=== PATIENT | female | born 1965 | race Caucasian/White ===

== ENCOUNTER → 2016-11-27 | Outpatient (CLI) | payer OTHER ==
--- NOTE | 2016-11-28 09:11 | MM ---
Reason for exam: screening (asymptomatic). Last mammogram was performed 4 years and 1 month ago. History: Patient is postmenopausal. Took hormonal contraceptives for 2 years beginning at age 20. Physical Findings: A clinical breast exam by your physician is recommended on an annual basis and results should be correlated with mammographic findings. MG Screening Mammo w CAD Bilateral CC and MLO view(s) were taken. Prior study comparison: October 15, 2012, bilateral digital screening mammo w/CAD. December 02, 2008, bilateral digital screening mammogram. The breast tissue is extremely dense which could obscure a lesion on mammography. No significant changes when compared with prior studies. ASSESSMENT: Benign, BI-RAD 2 RECOMMENDATION: Routine screening mammogram of both breasts in 1 year.
== END | disposition home or self-care (01) ==
LOC: RADMAMWWP 13:14
PROVIDERS: ATTEND Obstetrics & Gynecology
DX: Z12.31 Encounter for screening mammogram for malignant neoplasm of breast (principal)

== ENCOUNTER → 2016-11-27 | Outpatient (CLI) | payer OTHER ==
[2016-11-27 08:59] LABS: ALT 31 U/L (9-52); AST 18 U/L (14-36); Alkaline Phosphatase 62 U/L (38-126); Anion Gap 8 mmol/L; Blood Urea Nitrogen 14 mg/dL (7-17); Calcium 8.9 mg/dL (8.4-10.2); Carbon Dioxide 27 mmol/L (22-30); Chloride 107 mmol/L (98-107); Cholesterol 143 mg/dL (<200); Glucose 90 mg/dL (74-99); HDL Cholesterol 50 mg/dL (40-60); Non-African American GFR(MDRD) >60 (>60 ml/min/1.73 sqM); Potassium 4.4 mmol/L (3.5-5.1); Sodium 142 mmol/L (137-145); Total Bilirubin 0.1 mg/dL (0.2-1.3); Total Protein 6.8 g/dL (6.3-8.2)
[2016-11-27 09:09] LABS: Hemoglobin A1C 6.1 % (4.2-6.1)
[2016-11-27 16:26] LABS: Urine Creatinine 198.9 mg/dL
== END | disposition home or self-care (01) ==
LOC: LABWHC1 08:12
PROVIDERS: ATTEND Internal Medicine Endocrinology, Diabetes & Metabolism
DX: E11.9 Type 2 diabetes mellitus without complications (principal); Z98.890 Other specified postprocedural states
CPT/HCPCS: 36415; 80053; 80061; 82043; 82306; 82570; 83036

== ENCOUNTER → 2017-06-14 | Outpatient (CLI) | payer OTHER ==
--- NOTE | 2017-06-15 06:59 | XR ---
EXAMINATION TYPE: XR KUB DATE OF EXAM: 06/14/2017 4:50 PM CLINICAL HISTORY: Constipation with pain and cramping TECHNIQUE: Two supine KUB images of the abdomen are obtained. COMPARISON: CT abdomen and pelvis October 21, 2015. FINDINGS: Scattered gas is seen in non-distended small bowel loops. Gas and fecal material is seen in non-distended colon and rectum. Surgical sutures epigastric region from gastric sleeve surgery are r edemonstrated. Visualized lung bases are clear. No suspicious calcifications are seen visualized osse ous structures are intact. IMPRESSION: Overall nonobstructive bowel gas pattern. No significant colonic fecal stasis.
== END ==
LOC: RADXRMAIN 16:32
PROVIDERS: ATTEND Family Medicine
DX: K59.09 Other constipation (principal)
CPT/HCPCS: 74018

== ENCOUNTER → 2017-08-24 | Outpatient (CLI) | payer OTHER ==
[2017-08-24 13:38] LABS: T4, Free (Free Thyroxine) 0.75 ng/dL (0.78-2.19)
== END | disposition home or self-care (01) ==
LOC: LABWHC1 12:16
PROVIDERS: ATTEND Obstetrics & Gynecology
DX: E03.9 Hypothyroidism, unspecified (principal)
CPT/HCPCS: 36415; 84439; 84443

== ENCOUNTER → 2017-11-10 | Outpatient (CLI) | payer OTHER ==
[2017-11-10 09:41] LABS: Anisocytosis Slight; Basophils # (A) 0.1 k/uL (0-0.2); Basophils % (A) 1 %; Eosinophils # (A) 0.1 k/uL (0-0.7); Eosinophils % (A) 3 %; HCT 31.7 % (34.0-46.0); HGB 9.5 gm/dL (11.4-16.0); Hypochromasia Marked; Lymphocytes # (A) 1.3 k/uL (1.0-4.8); Lymphocytes % (A) 30 %; MCH 22.3 pg (25.0-35.0); MCV 74.5 fL (80.0-100.0); Mean Platelet Volume 5.8; Microcytosis Moderate; Monocytes # (A) 0.2 k/uL (0-1.0); Monocytes % (A) 6 %; Neutrophils # (A) 2.5 k/uL (1.3-7.7); Neutrophils % (A) 58 %; Platelet Count 392 k/uL (150-450); RBC 4.26 m/uL (3.80-5.40); RDW 17.5 % (11.5-15.5); WBC 4.3 k/uL (3.8-10.6)
[2017-11-10 09:56] LABS: ALT 27 U/L (9-52); AST 22 U/L (14-36); Alkaline Phosphatase 57 U/L (38-126); Anion Gap 6 mmol/L; Blood Urea Nitrogen 20 mg/dL (7-17); Calcium 9.4 mg/dL (8.4-10.2); Carbon Dioxide 27 mmol/L (22-30); Chloride 107 mmol/L (98-107); Cholesterol 177 mg/dL (<200); Glucose 106 mg/dL (74-99); HDL Cholesterol 57 mg/dL (40-60); LDL Cholesterol,Calculated 102 mg/dL (0-99); Lipase 270 U/L (23-300); Sodium 140 mmol/L (137-145); Total Bilirubin 0.3 mg/dL (0.2-1.3); Total Protein 7.3 g/dL (6.3-8.2); Triglycerides 89 mg/dL (<150)
[2017-11-10 11:00] LABS: Erythrocyte Sedimentation Rate 25 mm/hr (0-20)
[2017-11-10 18:44] LABS: Hemoglobin A1C 6.2 % (4.0-6.0)
== END | disposition home or self-care (01) ==
LOC: LABWHC1 08:38
PROVIDERS: ATTEND Family Medicine
DX: Z00.00 Encounter for general adult medical examination without abnormal findings (principal); E11.9 Type 2 diabetes mellitus without complications; K86.89 Other specified diseases of pancreas; R53.83 Other fatigue; R19.04 Left lower quadrant abdominal swelling, mass and lump
CPT/HCPCS: 36415; 80053; 80061; 82043; 82570; 82607; 83036; 83690; 83735; 84443; 85025; 85652

== ENCOUNTER → 2018-05-28 | Outpatient (CLI) | payer OTHER ==
--- NOTE | 2018-05-28 09:29 | US ---
EXAMINATION TYPE: US abdomen complete DATE OF EXAM: 05/28/2018 COMPARISON: US 11/16/2015, CT 10/21/2015 CLINICAL HISTORY: R19.04 PELVIC SWELLING,MASS OR LUMP,R11.0 NAUSEA. EXAM MEASUREMENTS: Liver Length: 15.3 cm Gallbladder Wall: 0.2 cm CBD: 0.3 cm Spleen: 9.8 cm Right Kidney: 9.8 x 4.2 x 4.9 cm Left Kidney: 10.5 x 5.9 x 4.6 cm Pancreas: Obscured by bowel gas Liver: Coarse, heterogeneous echotexture. Portal vein appear enlarged measuring 1.6 cm Gallbladder: wnl Evidence for sonographic Gooden's sign: No CBD: wnl Spleen: wnl Right Kidney: No hydronephrosis or masses seen Left Kidney: No hydronephrosis or masses seen Upper IVC: wnl Abd Aorta: Proximal portion obscured by bowel gas, visualized portions wnl IMPRESSION: 1. Coarsened pattern to the liver suggestive of fatty infiltration, hepatitis or diffuse hepatocellul ar disease correlate clinically.
== END | disposition home or self-care (01) ==
LOC: RADUSWWP 08:15
PROVIDERS: ATTEND Family Medicine
DX: R93.2 Abnormal findings on diagnostic imaging of liver and biliary tract (principal); R74.8 Abnormal levels of other serum enzymes; K86.89 Other specified diseases of pancreas; R19.04 Left lower quadrant abdominal swelling, mass and lump; R11.0 Nausea
CPT/HCPCS: 76700

== ENCOUNTER 2018-06-05 06:55 | Day surgery (SDC) | payer OTHER ==
[2018-06-03 12:50] VITALS: BMI 25.7
[~2018-06-05 06:55] MED LIST: LACTATED RINGERS 1,000 ML IV SCH; LIDOCAINE 1% 20 ML VIAL (10MG/ML) FOR IV START INTRADERMA PRN
[2018-06-05 07:20] VITALS: RESP 16; TEMP 98.3
[2018-06-05 07:20] LABS: Glucose,Whole Blood 127 mg/dL (75-99)
[2018-06-05] MEDS ORDERED: LIDOCAINE 1% INJ 10MG/ML (20 ML MDV) ONE (07:30)
[2018-06-05] MEDS ORDERED: PROPOFOL 10 MG/ML 20 ML VIAL IV ONE (07:30)
--- NOTE | 2018-06-05 07:34 | P.GSHP ---
History of Present Illness H&P Date: 06/05/18 CHIEF COMPLAINT: GERD and colon screen HISTORY OF PRESENT ILLNESS: The patient is a 52-year-old female who presents with gastroesophageal reflux disease and need for colon screen. Upper and lower endoscopy were offered for further evaluation and management. PAST MEDICAL HISTORY: Please see list. PAST SURGICAL HISTORY: Please see list. MEDICATIONS: Please see list. ALLERGIES: Please see list. SOCIAL HISTORY: No illicit drug use FAMILY HISTORY: No reports of Crohn disease or ulcerative colitis. REVIEW OF ORGAN SYSTEMS: CONSTITUTIONAL: No reports of fevers or chills. GI: Denies any blood in stools or constipation. PHYSICAL EXAM: VITAL SIGNS: Stable GENERAL: Well-developed pleasant in no acute distress. HEENT: No scleral icterus. Extraocular movements grossly intact. Moist buccal mucosa. NECK: Supple without lymphadenopathy. CHEST: Unlabored respirations. Equal bilateral excursions. CARDIOVASCULAR: Regular rate and rhythm. Distal 2+ pulses. ABDOMEN: Soft, nondistended. MUSCULOSKELETAL: No clubbing, cyanosis, or edema. ASSESSMENT: 1. Gastroesophageal reflux disease 2. Colon screen. PLAN: 1. Recommend proceeding with an upper and lower endoscopy Past Medical History Past Medical History: Diabetes Mellitus, GERD/Reflux, Renal Disease, Syncope, Thyroid Disorder Additional Past Medical History / Comment(s): TYPE 2 DIABETES CONTROLLED WITH DIET & EXERCISE. HX ANEMIA. HX heart murmur 20 yrs ago, no treatment. Acid reflux resolved. Syncope X1 6 weeks ago. "Undiagnosed kidney problem." Constipation. Hiatal hernia. Hx low thyroid, resolved now. History of Any Multi-Drug Resistant Organisms: None Reported Past Surgical History: Bariatric Surgery, Section, Hysterectomy, Tubal Ligation Additional Past Surgical History / Comment(s): LAP BAND IN 2007, LAB BAND REMOVED IN 2013, GASTRIC SLEEVE 2013. X 2. Past Anesthesia/Blood Transfusion Reactions: No Reported Reaction, Family History of Problems w/ Anesthesia Additional Past Anesthesia/Blood Transfusion Reaction / Comment(s): MOTHER & SISTER HAD DIFFICULTY IN WAKING UP. Past Psychological History: No Psychological Hx Reported Smoking Status: Current some day smoker Past Alcohol Use History: None Reported Additional Past Alcohol Use History / Comment(s): STARTED SMOKING AGE 19(1984) OFF & ON - NOW SOMEDAY SMOKER 1/2 PACK PER WEEK. Past Drug Use History: None Reported - Past Family History Mother History Unknown: Yes Medications and Allergies Home Medications Medication Instructions Recorded Confirmed Type Cetirizine HCl [Zyrtec] 10 mg PO DAILY 12/02/14 06/05/18 History Lisinopril [Zestril] 5 mg PO QAM 06/03/18 06/05/18 History Multivitamins, Thera [Multivitamin 1 tab PO DAILY 06/03/18 06/05/18 History (formulary)] Vitamin D (Unknown Dose) 2 tab PO DAILY 06/03/18 06/05/18 History Allergies Allergy/AdvReac Type Severity Reaction Status Date / Time clarithromycin [From Biaxin] Allergy Dyspnea, Verified 06/03/18 12:52 Hives sulfamethoxazole Allergy Dyspnea Verified 06/03/18 12:52 [From Bactrim] trimethoprim [From Bactrim] Allergy Dyspnea Verified 06/03/18 12:52 venom-honey bee Allergy Anaphylaxis Verified 06/03/18 12:52 [bee venom (honey bee)] Surgical - Exam Vital Signs Temp Pulse Resp BP Pulse Ox 98.3 F 79 16 115/62 98 06/05/18 07:12 06/05/18 07:12 06/05/18 07:12 06/05/18 07:12 06/05/18 07:12 Results - Labs Abnormal Lab Results - Last 24 Hours (Table) 06/05/18 Range/Units 07:16 POC Glucose (mg/dL) 127 H (75-99) mg/dL
--- NOTE | 2018-06-05 07:43 | P.GSHP ---
History of Present Illness H&P Date: 06/05/18 PREOPERATIVE DIAGNOSIS: Dysphagia. Epigastric abdominal pain POSTOPERATIVE DIAGNOSIS: Dysphagia. Epigastric abdominal pain Gastrojejunal stricture without chronic ulcer without perforation OPERATION: Esophagogastrojejunoscopy with balloon dilatation from 18 to 20 mm. SURGEON: Lissy Elizabeth MD ANESTHESIA: MAC. INDICATIONS: The patient is a 52-year-old female who presents with a history of dysphagia, gastric bypass. Benefits and risks of the procedure were described. Informed consent was obtained. DESCRIPTION: The patient was brought into the endoscopy suite and laid in the left lateral decubitus position. After a timeout was confirmed, the procedure was initiated. An Olympus gastroscope was passed along the posterior oropharynx down to the distal esophagus where the squamocolumnar junction was unremarkable. The gastric pouch was entered. A gastrojejunal stricture of 18 mm was found as the adult gastroscope was 9.5 mm in size. A [employer] balloon dilator was placed through the scope. Final insufflation up to 20 mm was performed with a total of 1 minutes. The scope was advanced up to 60 cm from the incisors into the Iraj limb. The mucosa of the gastrojejunal anastomosis was intact. No chronic gastrojejunal marginal ulcer was encountered. No full-thickness injury was encountered. The GI tract was desufflated. The patient tolerated the procedure well. FINDINGS: Squamocolumnar junction unremarkable at 33 cm. Stricture of approximately 182 mm encountered. Long blind jejunal limb, 7 cm Diaphragmatic hiatal hernia 3 cm NO gastrojejunal ulceration encountered. Successful balloon dilatation to 20 mm. Gastric pouch 3 cm. RECOMMENDATIONS: Upper endoscopy as needed Past Medical History Past Medical History: Diabetes Mellitus, GERD/Reflux, Renal Disease, Syncope, Thyroid Disorder Additional Past Medical History / Comment(s): TYPE 2 DIABETES CONTROLLED WITH DIET & EXERCISE. HX ANEMIA. HX heart murmur 20 yrs ago, no treatment. Acid reflux resolved. Syncope X1 6 weeks ago. "Undiagnosed kidney problem." Constipation. Hiatal hernia. Hx low thyroid, resolved now. History of Any Multi-Drug Resistant Organisms: None Reported Past Surgical History: Bariatric Surgery, Section, Hysterectomy, Tubal Ligation Additional Past Surgical History / Comment(s): LAP BAND IN 2007, LAB BAND REMOVED IN 2013, GASTRIC SLEEVE 2013. X 2. Past Anesthesia/Blood Transfusion Reactions: No Reported Reaction, Family History of Problems w/ Anesthesia Additional Past Anesthesia/Blood Transfusion Reaction / Comment(s): MOTHER & SISTER HAD DIFFICULTY IN WAKING UP. Past Psychological History: No Psychological Hx Reported Smoking Status: Current some day smoker Past Alcohol Use History: None Reported Additional Past Alcohol Use History / Comment(s): STARTED SMOKING AGE 19(1982) OFF & ON - NOW SOMEDAY SMOKER 1/2 PACK PER WEEK. Past Drug Use History: None Reported - Past Family History Mother History Unknown: Yes Medications and Allergies Home Medications Medication Instructions Recorded Confirmed Type Cetirizine HCl [Zyrtec] 10 mg PO DAILY 12/02/14 06/05/18 History Lisinopril [Zestril] 5 mg PO QAM 06/03/18 06/05/18 History Multivitamins, Thera [Multivitamin 1 tab PO DAILY 06/03/18 06/05/18 History (formulary)] Vitamin D (Unknown Dose) 2 tab PO DAILY 06/03/18 06/05/18 History Allergies Allergy/AdvReac Type Severity Reaction Status Date / Time clarithromycin [From Biaxin] Allergy Dyspnea, Verified 06/03/18 12:52 Hives sulfamethoxazole Allergy Dyspnea Verified 06/03/18 12:52 [From Bactrim] trimethoprim [From Bactrim] Allergy Dyspnea Verified 06/03/18 12:52 venom-honey bee Allergy Anaphylaxis Verified 06/03/18 12:52 [bee venom (honey bee)] Surgical - Exam Vital Signs Temp Pulse Resp BP Pulse Ox 98.3 F 79 16 115/62 98 06/05/18 07:12 06/05/18 07:12 06/05/18 07:12 06/05/18 07:12 06/05/18 07:12 Results - Labs Abnormal Lab Results - Last 24 Hours (Table) 06/05/18 Range/Units 07:16 POC Glucose (mg/dL) 127 H (75-99) mg/dL
--- NOTE | 2018-06-05 07:59 | P.PCN ---
Date of Procedure: 06/05/18 Description of Procedure: PREOPERATIVE DIAGNOSIS: Colonoscopy screening, first POSTOPERATIVE DIAGNOSIS: Colonoscopy screening, first OPERATION: Colonoscopy to the ileocecal valve and appendiceal orifice. SURGEON: Lissy Elizabeth MD. ANESTHESIA: MAC. INDICATIONS: The patient is a 52-year-old female who presents for her first colonoscopy screening. Benefits and risks were described and informed consent was obtained. DESCRIPTION OF PROCEDURE: The patient had undergone Gatorade, MiraLAX and Dulcolax prep. She had been brought into the operating room and laid in the left lateral decubitus position. After adequate intravenous sedation, the rectum was examined with 2% lidocaine jelly. No external hemorrhoids were encountered. The rectal tone was within normal limits. No lesions were palpated in the rectal vault. An Olympus colonoscope was advanced until the ileocecal valve and appendiceal orifice were clearly viewed. The prep was excellent with clear visualization of the mucosal folds. The scope was removed with visualization of each mucosal fold. No scattered diverticulosis was encountered. No colonic polyps were found. No evidence of focal colitis was found. Retroflexion of the scope demonstrated no internal hemorrhoids without active bleeding or inflammation. The colon was de sufflated. The patient had tolerated the procedure well. Withdrawal time was over 6 minutes. FINDINGS: Aronchik preparation quality scale 1 (1-5) No internal hemorrhoids No sigmoid diverticulosis No external prolapsed hemorrhoids. No arteriovenous malformations. No adenomatous polyps. No focal colitis. RECOMMENDATIONS: Lower endoscopy in 10 years, 2028 Plan - Discharge Summary Discharge Rx Participant: No New Discharge Prescriptions: No Action Cetirizine HCl [Zyrtec] 10 mg PO DAILY Multivitamins, Thera [Multivitamin (formulary)] 1 tab PO DAILY Lisinopril [Zestril] 5 mg PO QAM Vitamin D (Unknown Dose) 2 tab PO DAILY Discharge Medication List Cetirizine HCl [Zyrtec] 10 mg PO DAILY 12/02/14 [History] Lisinopril [Zestril] 5 mg PO QAM 06/03/18 [History] Multivitamins, Thera [Multivitamin (formulary)] 1 tab PO DAILY 06/03/18 [History] Vitamin D (Unknown Dose) 2 tab PO DAILY 06/03/18 [History] Follow up Appointment(s)/Referral(s): Lissy Elizabeth MD [STAFF PHYSICIAN] - 07/02/18 Patient Instructions/Handouts: *[facility] - (Anesthesia) Endoscopy Discharge Instructions Activity/Diet/Wound Care/Special Instructions: Repeat colonoscopy in 10 years, 2028 Discharge Disposition: HOME SELF-CARE
[2018-06-05 08:21] VITALS: BP 99/66; PULSE 71
== END 2018-06-05 08:30 | disposition home or self-care (01) ==
LOC: ORWHC2ENDO 06:55
PROVIDERS: ATTEND Surgery Plastic and Reconstructive Surgery
DX: Z12.11 Encounter for screening for malignant neoplasm of colon (principal); K31.89 Other diseases of stomach and duodenum; K21.9 Gastro-esophageal reflux disease without esophagitis; F17.210 Nicotine dependence, cigarettes, uncomplicated; E11.9 Type 2 diabetes mellitus without complications; E07.9 Disorder of thyroid, unspecified; R55 Syncope and collapse; K44.9 Diaphragmatic hernia without obstruction or gangrene; Z91.030 Bee allergy status; Z91.09 Other allergy status, other than to drugs and biological substances; Z88.1 Allergy status to other antibiotic agents; Z88.2 Allergy status to sulfonamides; Z98.84 Bariatric surgery status
CPT/HCPCS: 43245; J2001; J2704; C1726; G0121; 45378

== ENCOUNTER → 2018-07-17 | Outpatient (CLI) | payer OTHER ==
[2018-07-17 15:31] VITALS: BP 135/85; PULSE 90; TEMP 98.1; BMI 27.9
--- NOTE | 2018-07-17 15:58 | P.PN ---
Subjective Progress Note Date: 07/17/18 HPI: Highest of 263 pounds and kept for 11 years. She has severe irritation of the skin and belly button. She is taking the Nystatin powder. Has severe back pain from her skin. She has troubles with grooming as she cannot zip her clothes and increase hot red ulcers, painful ulcers. She has been treated by her CATHODIC PROTECTION TECHNICIAN provider for severe skin infections with worsened symptoms in the summer. ABDOMEN: Has 15 pounds with active panniculitis. ASSESSMENT: 1. Panniculitis 2. Hypothryoidism PLAN: 1. Recommend panniculectomy 2. Start Synthroid low dose of 25 mcg Objective - Vital Signs Vital signs: Vital Signs Temp 98.1 F 07/17/18 15:16 Pulse 90 07/17/18 15:16 Resp BP 135/85 07/17/18 15:16 Pulse Ox Intake & Output 07/16/18 07/17/18 07/17/18 18:59 06:59 18:59 Weight 68.81 kg
== END ==
LOC: BARWHC3 15:03
PROVIDERS: ATTEND Surgery Plastic and Reconstructive Surgery
DX: M79.3 Panniculitis, unspecified (principal); E03.9 Hypothyroidism, unspecified
CPT/HCPCS: 99201

== ENCOUNTER → 2018-07-23 | Outpatient (CLI) | payer OTHER ==
[2018-07-23 17:53] LABS: Anisocytosis Moderate; HCT 33.4 % (34.0-46.0); HGB 10.2 gm/dL (11.4-16.0); Hypochromasia Marked; MCH 24.4 pg (25.0-35.0); MCHC 30.4 g/dL (31.0-37.0); MCV 80.2 fL (80.0-100.0); Mean Platelet Volume 7.2; Microcytosis Slight; Platelet Count 317 k/uL (150-450); RBC 4.17 m/uL (3.80-5.40); RDW 23.1 % (11.5-15.5)
== END | disposition home or self-care (01) ==
LOC: LABPAT 17:06
PROVIDERS: ATTEND Anesthesiology
DX: Z01.812 Encounter for preprocedural laboratory examination (principal); K80.20 Calculus of gallbladder without cholecystitis without obstruction
CPT/HCPCS: 85027

== ENCOUNTER 2018-07-25 10:43 | Day surgery (SDC) | payer OTHER ==
[2018-07-23 10:06] VITALS: BMI 26.5
[~2018-07-25 10:43] MED LIST changes: +DEXAMETHASONE SOD PHOSPHATE 10 MG/ML 1 ML VIAL IV ONE; +HEPARIN SODIUM,PORCINE 5,000 UNIT/ML 1 ML VIAL SQ ONE; +HYDROmorphone 0.5 MG/0.5 ML SYRINGE IVP PRN; +INDOCYANINE GREEN 25 MG VIAL IV STA; +MIDAZOLAM 2 MG/2 ML VIAL IV PRN; +ONDANSETRON 4 MG/2 ML VIAL IVP ONE; +SCOPOLAMINE 1.5MG/72HR PATCH TRANSDERM ONE; +SCOPOLAMINE 1.5MG/72HR PATCH TRANSDERM SCH; +ceFAZolin IN SWFI 2 GM/20 ML SYRINGE IVP ONE
--- NOTE | 2018-07-25 11:33 | P.GSHP ---
History of Present Illness H&P Date: 07/25/18 CHIEF COMPLAINT: Cholecystitis HISTORY OF PRESENT ILLNESS: The patient is a 52-year-old female who presents with history of epigastric including right upper quadrant abdominal pain. She underwent diagnostic studies for her gallbladder. Separately her clinical picture was consistent with cholecystitis. Now she presents for surgical intervention. PAST MEDICAL HISTORY: Please see list PAST SURGICAL HISTORY: Please see list MEDICATIONS: Please see list ALLERGIES: Denies. SOCIAL HISTORY: No illicit drug use or recent tobacco use FAMILY HISTORY: Pertinent for gallbladder disease REVIEW OF ORGAN SYSTEMS: CONSTITUTIONAL: No reports of fevers or chills. HEENT: Denies any troubles with the vision or hearing. PHYSICAL EXAM: VITAL SIGNS: Afebrile vital signs stable GENERAL: Well-developed pleasant in no acute distress. HEENT: No scleral icterus. Extraocular movements grossly intact. Moist buccal mucosa. NECK: Supple without lymphadenopathy. CHEST: Unlabored respirations. Equal bilateral excursions. CARDIOVASCULAR: Regular rate regular rhythm rhythm. Distal 2+ pulses. ABDOMEN: Soft, nondistended. Tender along the epigastrium and right upper quadrant. MUSCULOSKELETAL: No clubbing, cyanosis, or edema. NEURO: Cranial nerves II to XII within normal limits. No focal or lateralizing signs. PSYCH: Alert and oriented to person, place and time. SKIN: Well-perfused good skin turgor. ASSESSMENT: 1. Epigastric and right upper quadrant abdominal pain 2. Chronic cholecystitis 3. Symptomatic gallstones. PLAN: 1. Will need a robotic cholecystectomy possible open. Benefits and risks were described. 2. Heparin for DVT prophylaxis 5000 units. 3. Antibiotic prophylaxis. Past Medical History Past Medical History: Diabetes Mellitus, GERD/Reflux Additional Past Medical History / Comment(s): TYPE 2 DIABETES CONTROLLED WITH DIET & EXERCISE (pt takes Lisinopril not for BP but to protect kidneys from type 2 DM). HAS HX chronic ANEMIA & LOW IRON levels (has received Iron infusions (most recent 07/04/18 and 07/10/18) History of Any Multi-Drug Resistant Organisms: None Reported Past Surgical History: Bariatric Surgery, Section, Hysterectomy, Tubal Ligation Additional Past Surgical History / Comment(s): LAP BAND IN 2007, LAB BAND REMOVED IN 2013., GASTRIC SLEEVE 2013. X 2 (AUGUST 1987 & JUNE 2004)-Tubal Ligation JUNE 2004, HYSTERECTOMY 2014, RnY (gastric bypass 2015), left oopherectomy 2016 Past Anesthesia/Blood Transfusion Reactions: Family History of Problems w/ Anesthesia Additional Past Anesthesia/Blood Transfusion Reaction / Comment(s): MOTHER & SISTER HAD DIFFICULTY IN WAKING UP but she has not had any problems personally Additional Past Alcohol Use History / Comment(s): STARTED SMOKING AGE 19(1984), off and on until 2016. smoked 1/2 pack/day - Past Family History Father Family Medical History: Neurologic Disorder Additional Family Medical History / Comment(s): Patient states her father had "super high iron levels", Sjogrens syndrome, at age 62 from Marcie Gherig's disease Mother History Unknown: Yes Family Medical History: No Reported History Medications and Allergies Home Medications Medication Instructions Recorded Confirmed Type Cetirizine HCl [Zyrtec] 10 mg PO DAILY 12/02/14 07/25/18 History Lisinopril [Zestril] 5 mg PO QAM 06/03/18 07/25/18 History Multivitamins, Thera [Multivitamin 1 tab PO DAILY 06/03/18 07/25/18 History (formulary)] Levothyroxine Sodium [Synthroid] 25 mcg PO DAILY #30 tab 07/17/18 07/25/18 Rx Ergocalciferol (Vitamin D2) 50,000 unit PO PEDROZA 07/23/18 07/25/18 History [Vitamin D2] Ferrous Sulfate [Iron (65 MG 325 mg PO BID 07/23/18 07/25/18 History Elemental)] Allergies Allergy/AdvReac Type Severity Reaction Status Date / Time clarithromycin [From Biaxin] Allergy Dyspnea, Verified 07/25/18 11:06 Hives sulfamethoxazole Allergy Dyspnea Verified 07/25/18 11:06 [From Bactrim] trimethoprim [From Bactrim] Allergy Dyspnea Verified 07/25/18 11:06 venom-honey bee Allergy Anaphylaxis Verified 07/25/18 11:06 [bee venom (honey bee)] Surgical - Exam Vital Signs Temp Pulse Resp BP Pulse Ox 98.0 F 67 16 109/58 99 07/25/18 11:20 07/25/18 11:20 07/25/18 11:20 07/25/18 11:20 07/25/18 11:20
[2018-07-25 11:57] LABS: Glucose,Whole Blood 104 mg/dL (75-99)
[2018-07-25] MEDS ORDERED: ROCURONIUM BROMIDE 10 MG/ML 10 ML VIAL IV ONE (12:48)
[2018-07-25] MEDS ORDERED: PROPOFOL 10 MG/ML 20 ML VIAL IV ONE (12:48)
[2018-07-25] MEDS ORDERED: fentaNYL (PF) 50 MCG/ML 2 ML AMP ONE (12:48)
[2018-07-25] MEDS ORDERED: INDOCYANINE GREEN 25 MG VIAL IV ONE (12:48)
[2018-07-25] MEDS ORDERED: LIDOCAINE 1% INJ 10MG/ML (20 ML MDV) ONE (12:48)
[2018-07-25] MEDS ORDERED: ePHEDrine SULFATE/0.9% NACL/PF 50 MG/5 ML SYRINGE IV ONE (12:48)
[2018-07-25] MEDS ORDERED: NEOSTIGMINE 1 MG/ML 10 ML VIAL ONE (12:48)
[2018-07-25] MEDS ORDERED: MIDAZOLAM 2 MG/2 ML VIAL ONE (12:48)
[2018-07-25] MEDS ORDERED: GLYCOPYRROLATE 0.2 MG/ML 2 ML VIAL ONE (12:48)
[2018-07-25] MEDS ORDERED: BUPIVACAIN-EPI 0.25%-1:200,000 30 ML VIAL SQ ONE (13:16)
[2018-07-25] MEDS ORDERED: LACTATED RINGERS 1,000 ML IV ONE (13:38)
--- NOTE | 2018-07-25 14:10 | P.OP ---
Date of Procedure: 07/25/18 Description of Procedure: SURGEON: LISSY ELIZABETH MD PREOPERATIVE DIAGNOSES: 1. Right upper quadrant abdominal pain 2. Chronic cholecystitis 3. Hypothyroidism 4. Hypertensive heart disease 5. Iron deficiency anemia POSTOPERATIVE DIAGNOSES: 1. Right upper quadrant abdominal pain 2. Chronic cholecystitis 3. Hypothyroidism 4. Hypertensive heart disease 5. Iron deficiency anemia OPERATION: Robotic-assisted da Senthil Xi laparoscopic cholecystectomy, multiport with FIREFLY ESTIMATED BLOOD LOSS: 5 mL. SPECIMENS REMOVED: Gallbladder. COMPLICATIONS: None. OPERATIVE FINDINGS: 1. Chronic cholecystitis with adhesions to infundibulum 2. Console time 14 minutes INDICATIONS: The patient is a 52-year-old female who presents with cholelcystitis. Surgical intervention with a laparoscopic cholecystectomy was described at length including injury to the biliary tree, bleeding, infection, need for further surgery. Informed consent was obtained. Robotic assisted laparoscopic approach was described. Benefits and risks of the procedure including but not limited to bleeding, infection, injury to the biliary tree was described. Informed consent was obtained. DESCRIPTION OF PROCEDURE: Patient was brought to the operating room, placed in supine position. After general induction, the abdomen had been prepped and draped in standard sterile fashion. The robotic da Senthil XI system was primed. After a timeout protocol was performed, the patient had been prepped and draped in standard sterile fashion. The patient was injected with indocyanine green. A 5 mm 0 degrees laparoscopic trocar entry was performed along the left upper quadrant. The abdomen insufflated to 15 mmHg pressure which was tolerated well. Diagnostic laparoscopy demonstrated no injury to bowel viscera or mesentery. The liver surface was unremarkable. Next, two 8 mm robotic ports were placed along the right upper abdomen. The camera 8-mm port was maintained along the epigastrium. Another 8 mm port was placed along the left upper abdominal wall after exchanging the 5 mm port. Please note that the ports were placed at least 10 to 15 cm away from the target anatomy of the gallbladder. The robot was docked along the left lateral abdomen. The patient was repositioned in reverse Trendelenburg position. Using a grasper for arm 3, a grasper for arm 4, including hook cautery for arm 1, the robotic system was docked and primed as described. Instruments were interchanged by the cosmetic sales assistant including hook cautery, Bovie cautery and clip appliers. I had sat at the console. The gallbladder fundus was retracted over the dome of the liver. Initial attention was brought to the infundibulum which was gently retracted in the inferior lateral approach. Using a grasper, the cystic duct including the cystic artery was carefully skeletonized. FIREFLY was used to identify the cystic artery and cystic structures. Large PLASTIC clips were used throughout the entire case. Using a clip administrative nursing supervisor 2 clips were placed proximally, and 1 clip was placed distally along the cystic duct and then cauterized with the cautery. Again care was taken to avoid any injury to the biliary tree as the common bile duct was clearly visualized during this portion of dissection. Next, the cystic artery was similarly clipped and cauterized. Electro-Bovie cautery was used to remove the gallbladder from the hepatic fossa. Hemostasis was checked and found to be adequate. The robot was undocked. I re-scrubbed into the case. Using a 10 mm Endo Catch bag via the left upper quadrant incision, the specimen was removed from the abdominal cavity. All pneumoperitoneum instruments were evacuated from the abdominal cavity. The incisions were reapproximated using 4-0 Monocryl in an interrupted subcuticular fashion. Fascial defects were less than 8 mm in size. Please note along the trocar sites, local anesthetic was placed as a field block prior to insertion of all instruments. Liquid glue was applied to the skin. At the end of the procedure needle, sponge, and instrument count had been verified correct by the quality control technician. The patient was transferred to postanesthesia care unit in stable condition. Intraoperative films were shared with the patient's family who were very pleased with the level of care. Plan - Discharge Summary Discharge Rx Participant: Yes New Discharge Prescriptions: New Acetaminophen [Tylenol] 325 mg PO Q4H #30 tab Continue Cetirizine HCl [Zyrtec] 10 mg PO DAILY Multivitamins, Thera [Multivitamin (formulary)] 1 tab PO DAILY Lisinopril [Zestril] 5 mg PO QAM Levothyroxine Sodium [Synthroid] 25 mcg PO DAILY #30 tab Ferrous Sulfate [Iron (65 MG Elemental)] 325 mg PO BID Ergocalciferol (Vitamin D2) [Vitamin D2] 50,000 unit PO PEDROZA Discharge Medication List Cetirizine HCl [Zyrtec] 10 mg PO DAILY 12/02/14 [History] Lisinopril [Zestril] 5 mg PO QAM 06/03/18 [History] Multivitamins, Thera [Multivitamin (formulary)] 1 tab PO DAILY 06/03/18 [History] Levothyroxine Sodium [Synthroid] 25 mcg PO DAILY #30 tab 07/17/18 [Rx] Ergocalciferol (Vitamin D2) [Vitamin D2] 50,000 unit PO PEDROZA 07/23/18 [History] Ferrous Sulfate [Iron (65 MG Elemental)] 325 mg PO BID 07/23/18 [History] Acetaminophen [Tylenol] 325 mg PO Q4H #30 tab 07/25/18 [Rx] Follow up Appointment(s)/Referral(s): Lissy Elizabeth MD [STAFF PHYSICIAN] - 07/30/18 Patient Instructions/Handouts: Low Fat Diet (DC), Laparoscopic Cholecystectomy (DC) Activity/Diet/Wound Care/Special Instructions: No lifting over 4 pounds in 2 weeks. Low-fat diet. Notify surgeon for fevers over 101, redness along incision, or increased pain. No bathtub soaks. May shower. May take over the counter pain meds as needed for pain Discharge Disposition: HOME SELF-CARE
[2018-07-25 14:13] VITALS: TEMP 97.3
[2018-07-25 14:51] VITALS: RESP 18
[2018-07-25 15:27] VITALS: BP 113/69; PULSE 68
== END 2018-07-25 16:23 | disposition home or self-care (01) ==
LOC: OR 10:43
PROVIDERS: ATTEND Surgery Plastic and Reconstructive Surgery
DX: K81.1 Chronic cholecystitis (principal); D50.9 Iron deficiency anemia, unspecified; E03.9 Hypothyroidism, unspecified; E11.9 Type 2 diabetes mellitus without complications; I11.9 Hypertensive heart disease without heart failure; K21.9 Gastro-esophageal reflux disease without esophagitis; Z88.1 Allergy status to other antibiotic agents; Z88.2 Allergy status to sulfonamides; Z90.49 Acquired absence of other specified parts of digestive tract; Z98.84 Bariatric surgery status; Z87.891 Personal history of nicotine dependence; Z79.890 Hormone replacement therapy; Z79.899 Other long term (current) drug therapy; Z91.030 Bee allergy status
CPT/HCPCS: 88304; 47562; J2250; J1644; J1100; J2710; J2405; J2001; J3010; J2704; J0690

== ENCOUNTER → 2018-11-20 | Outpatient (CLI) | payer OTHER ==
[2018-11-20 16:40] VITALS: BP 110/73; PULSE 66; RESP 16; TEMP 98.2; BMI 26.2
--- NOTE | 2018-11-20 17:32 | P.PN ---
Subjective Progress Note Date: 11/20/18 HPI: She comes in with panniculitis. ABDOMEN: Severe panniculitis. Pannus over 5 pounds. ASSESSMENT: 1. Morbid obesity PLAN: 1. Nystatin powder 2. Follow up 1 osmel 3. Labs reviewed with multiple vitamin deficiencies 4. Recommend panniculectomy to fix functional decline Objective - Vital Signs Vital signs: Vital Signs Temp 98.2 F 11/20/18 16:37 Pulse 66 11/20/18 16:37 Resp 16 11/20/18 16:37 BP 110/73 11/20/18 16:37 Pulse Ox Intake & Output 11/19/18 11/20/18 11/20/18 18:59 06:59 18:59 Weight 64.41 kg
== END | disposition home or self-care (01) ==
LOC: BARWHC3 16:04
PROVIDERS: ATTEND Surgery Plastic and Reconstructive Surgery
DX: E66.01 Morbid (severe) obesity due to excess calories (principal); M79.3 Panniculitis, unspecified; Z68.26 Body mass index [BMI] 26.0-26.9, adult
CPT/HCPCS: 99211

== ENCOUNTER → 2018-11-22 | Outpatient (CLI) | payer OTHER ==
[2018-11-22 13:02] LABS: HGB 12.1 gm/dL (11.4-16.0); MCH 30.6 pg (25.0-35.0); MCHC 32.9 g/dL (31.0-37.0); Mean Platelet Volume 6.6; Platelet Count 285 k/uL (150-450); RBC 3.97 m/uL (3.80-5.40); RDW 14.4 % (11.5-15.5)
[2018-11-22 13:13] LABS: INR 0.9 (<1.2); Partial Thromboplastin Time 23.9 sec (22.0-30.0); Prothrombin Time 9.8 sec (9.0-12.0)
[2018-11-22 19:21] LABS: Folate, Serum 7.7 ng/mL; Vitamin D 25 Hydroxy 28.2 ng/mL (30.0-100.0)
[2018-11-22 19:29] LABS: Iron Saturation 30.85 (12.00-45.00)
[2018-11-22 19:30] LABS: African American GFR (CKD) 122.3 (60.0-200.0); Albumin 4.3 g/dL (3.80-4.90); Albumin/Globulin Ratio 1.87 (1.60-3.17); Anion Gap 9.8 mmol/L (4.00-12.00); BUN/Creat Ratio 23.33 Ratio (12.00-20.00); Calcium 9.6 mg/dL (8.7-10.3); Carbon Dioxide 26.2 mmol/L (21.6-31.8); Chol/HDL Ratio 3.25; Globulin 2.3 g/dL (1.6-3.3); LDL Cholesterol,Calculated 102.2 mg/dL (0.0-131.0); Magnesium 1.8 mg/dL (1.5-2.4); Phosphorus 4.4 mg/dL (2.4-5.1); Potassium 4.1 mmol/L (3.5-5.5); Total Bilirubin 0.2 mg/dL (0.2-1.2); Total Protein 6.6 g/dL (6.2-8.2); VLDL Calculation 23.8 mg/dL (5.00-40.00)
[2018-11-22 21:13] LABS: Hemoglobin A1C 5.9 % (4.0-6.0)
[2018-11-25 14:15] LABS: Zinc, Serum 52 ug/dL (60-130)
[2018-11-26 08:23] LABS: Vitamin A 47 ug/dL (38-106)
== END ==
LOC: LABWHC1 12:17
PROVIDERS: ATTEND Surgery Plastic and Reconstructive Surgery
DX: E66.01 Morbid (severe) obesity due to excess calories (principal); E21.1 Secondary hyperparathyroidism, not elsewhere classified; E89.1 Postprocedural hypoinsulinemia; D50.9 Iron deficiency anemia, unspecified; E44.0 Moderate protein-calorie malnutrition; E55.9 Vitamin D deficiency, unspecified; K74.1 Hepatic sclerosis; N19 Unspecified kidney failure; K50.90 Crohn's disease, unspecified, without complications
CPT/HCPCS: 36415; 80053; 80061; 82306; 82525; 82607; 82728; 82746; 83036; 83540; 83550; 83735; 83970; 84100; 84134; 84255; 84425; 84443; 84590; 84630; 85027; 85610; 85730

== ENCOUNTER → 2018-12-25 | Outpatient (CLI) | payer OTHER ==
[2018-12-25 17:55] VITALS: BP 133/70; PULSE 65; RESP 16; TEMP 97.9; BMI 25.9
--- NOTE | 2018-12-25 18:08 | P.PN ---
Subjective Progress Note Date: 12/25/18 DATE OF SERVICE: 12/25/2018 CHIEF COMPLAINT: Panniculitis HISTORY OF PRESENT ILLNESS: Zoila Skaggs is a 53-year-old female who comes in with panniculitis recalcitrant to medical therapy. She has panniculitis for over 5 years. She has been treated by [employer]SERV[employer] including myself with Nystatin powder, creams. She has functional decline with bathing, grooming, and lower back dunn. She has troubler with hygiene and ambulation as well from her pannus. She has history of band to sleeve gastrectomy since 2012. Her weight has been stable for over 6 years. Her weight is stable. Her highest weight is 263 pounds. BMI was 48.6. Height of 5 feet 1.75 inches, her ideal body weight is 131 pounds. Today she comes in weighing 141 pounds from 142 pounds, 1 month ago. She has lost 1 pounds from 1 month ago. Lifetime weight loss of 122 pounds. Lifetime percent excess weight loss 93% PAST MEDICAL HISTORY: 1. Morbid obesity, BMI 48.6 2. Seasonal allergies. 3. Gastroesophageal reflux disease. 4. Panniculitis 5. Iron deficiency anemia PAST SURGICAL HISTORY: 1. Adjustable gastric band. 2. Removal of adjustable gastric band with sleeve gastrectomy, 1-stage procedure. 3. . 4. Tubal ligation. 5. Upper endoscopy with biopsy. 6. Cholecystectomy MEDICATIONS: Home Medications Medication Instructions Recorded Confirmed Cetirizine HCl [Zyrtec] 10 mg PO DAILY 12/02/14 07/25/18 Lisinopril [Zestril] 5 mg PO QAM 06/03/18 07/25/18 Multivitamins, Thera [Multivitamin 1 tab PO DAILY 06/03/18 07/25/18 (formulary)] Ergocalciferol (Vitamin D2) 50,000 unit PO PEDROZA 07/23/18 07/25/18 [Vitamin D2] Ferrous Sulfate [Iron (65 MG 325 mg PO BID 07/23/18 07/25/18 Elemental)] Previous Rx's Medication Instructions Recorded Levothyroxine Sodium [Synthroid] 25 mcg PO DAILY #30 tab 07/17/18 Acetaminophen [Tylenol] 325 mg PO Q4H #30 tab 07/25/18 ALLERGIES: 1. BEE VENOM. 2. CLARITHROMYCIN. 3. BACTRIM. 4. SULFA. SOCIAL HISTORY: Denies any active tobacco use. FAMILY HISTORY: Denies any lupus disease. Pertinent for morbid obesity and diabetes. REVIEW OF SYSTEMS: CONSTITUTIONAL: Her highest weight is 263 pounds. BMI was 48.6. Height of 5 feet 1.75 inches, her ideal body weight is 131 pounds. Lifetime weight loss of 122 pounds. Lifetime percent excess weight loss 93% HEENT: No troubles with vision or hearing. ENDOCRINE: A prior history of diabetes type 2. She states this resolved. RESPIRATORY: Denies any obstructive sleep apnea or asthma. CARDIOVASCULAR: Denies any palpitations or heart attacks. GASTROINTESTINAL: Has severe history of disease, especially after her sleeve gastrectomy. Denies any blood in stools. Denies any diarrhea. MUSCULOSKELETAL: Denies any bilateral lower extremity edema. Denies any active joint stiffness. NEURO: Denies any headaches or seizure disorders. PSYCH: Denies depression or suicidal ideation. HEMATOLOGIC: Denies any easy bruising or bleeding. SKIN: No rashes or skin cancer except persistent panniculitis over 6 years. PHYSICAL EXAM: VITAL SIGNS: 5 feet 1.75 inches, 141 pounds. Body mass index 26.0 Vital Signs Temp 97.9 F 12/25/18 17:53 Pulse 65 12/25/18 17:53 Resp 16 12/25/18 17:53 BP 133/70 12/25/18 17:53 Pulse Ox CONSTITUTIONAL: Well developed and in no acute distress. EYES: Conjuctivae without sclera icterus. Pupils are equally round and reactive to light. Extraocular movements grossly intact. HEAD, EARS, NOSE, THROAT: Moist buccal mucosa. Head is atraumatic, normocephalic. Hears conversational speech. No nasal drainage. NECK: Supple. No JV distention. No thyroidomegaly. RESPIRATORY: Non-labored respirations and equal bilateral excursions. No gross wheezes. CARDIOVASCULAR: Regular rate and rhythm. Palpable 2+ radial pulses. ABDOMEN: Severe panniculitis. Pannus over 5 to 10 pounds. No peritonitis. LYMPH: No neck lymphadenopathy. No axillary lymphadenopathy. MUSCULOSKELETAL: Nail and fingers with good capillary refill. SKIN: Warm and well perfused with good skin turgor. NEUROLOGIC: Cranial nerves I through XII grossly intact. Sensation upper and extremities intact. No focal or lateralizing signs. PSYCH: Appropriate affect. Alert and oriented to person, place and time. Displays appropriate insight. LABS: Hgb A1c 5.9%. Vitamin D is low 28. TSH within normal limits. Zinc is low 52. ASSESSMENT: 1. Morbid obesity due to excess calories, down from 48.6 to 26.0 2. Medically refractory panniculitis 3. Lower back pain from pannus. 4. Hypothyroidism 5. Glucose intolerance. 6. Status post sleeve gastrectomy. 7. Iron-deficiency anemia. 8. Vitamin D deficiency. 9. Central adiposity 10. Status post massive weight loss, 122 pounds. 11. Zinc deficiency. PLAN: 1. Her weight is stable for the past 1 month. Lifetime weight loss is 122 pounds over 6 years. 2. Recommend panniculectomy for correction of medical refractory panniculitis including functional deficits of hygiene, ambulation, lower back pain. At least 5 to 10 pounds resection advised. 3. Recommend 2 week protein diet for optimal recovery 4. Risks of bleeding, needs for drains, flap failure, infection, need for further surgery were described. 5. Inpatient hospitalization also described 6. Correction of thyroid deficiency to 50 mcg daily with medical reconciliation and prescription written. 7. All bariatric labs were reviewed with correction of Zinc needed and vitamin D deficiency. Objective - Vital Signs Vital signs: Vital Signs Temp 97.9 F 12/25/18 17:53 Pulse 65 12/25/18 17:53 Resp 16 12/25/18 17:53 BP 133/70 12/25/18 17:53 Pulse Ox Intake & Output 12/24/18 12/25/18 12/25/18 18:59 06:59 18:59 Weight 63.957 kg
== END | disposition home or self-care (01) ==
LOC: BARWHC3 16:16
PROVIDERS: ATTEND Surgery Plastic and Reconstructive Surgery
DX: E66.01 Morbid (severe) obesity due to excess calories (principal); M79.3 Panniculitis, unspecified; M54.5 Low back pain; H16.429 Pannus (corneal), unspecified eye; E03.9 Hypothyroidism, unspecified; E74.39 Other disorders of intestinal carbohydrate absorption; D50.9 Iron deficiency anemia, unspecified; E55.9 Vitamin D deficiency, unspecified; E66.8 Other obesity; E60 Dietary zinc deficiency; Z68.26 Body mass index [BMI] 26.0-26.9, adult; Z98.84 Bariatric surgery status; Z90.49 Acquired absence of other specified parts of digestive tract; Z83.79 Family history of other diseases of the digestive system; Z79.890 Hormone replacement therapy; Z79.899 Other long term (current) drug therapy; Z88.1 Allergy status to other antibiotic agents; Z88.2 Allergy status to sulfonamides; Z91.030 Bee allergy status
CPT/HCPCS: 99211

== ENCOUNTER → 2019-03-12 | Outpatient (CLI) | payer OTHER ==
[2019-03-12 17:25] VITALS: BP 137/67; PULSE 58; TEMP 98.3; BMI 26.4
--- NOTE | 2019-03-12 17:39 | P.PN ---
Subjective Progress Note Date: 03/12/19 DATE OF SERVICE: 03/12/2019 CHIEF COMPLAINT: Panniculitis HISTORY OF PRESENT ILLNESS: Zoila Skaggs is a 53-year-old female who comes in with recurrent panniculitis. She has more rash along her apron uncontrolled with prescription creams and powders. She comes after 6 months where her weight is stable. She has functional deficit as a result of her pannus including lower back pain. She has panniculitis for over 6 years. She also reports trouble with her thyroid. Her highest weight is 263 pounds. BMI was 48.6. Height of 5 feet 1.75 inches, her ideal body weight is 131 pounds. Today she comes in weighing 142 pounds from 141 pounds, 3 months ago. She has gained 1 pound in 3 months ago. Lifetime weight loss of 120 pounds. Lifetime percent excess weight loss 91 % PAST MEDICAL HISTORY: 1. Morbid obesity, BMI 48.6 2. Seasonal allergies. 3. Gastroesophageal reflux disease. 4. Panniculitis 5. Iron deficiency anemia PAST SURGICAL HISTORY: 1. Adjustable gastric band. 2. Removal of adjustable gastric band with sleeve gastrectomy, 1-stage procedure. 3. . 4. Tubal ligation. 5. Upper endoscopy with biopsy. 6. Cholecystectomy MEDICATIONS: Home Medications Medication Instructions Recorded Confirmed Cetirizine HCl [Zyrtec] 10 mg PO DAILY 12/02/14 07/25/18 Lisinopril [Zestril] 5 mg PO QAM 06/03/18 07/25/18 Multivitamins, Thera [Multivitamin 1 tab PO DAILY 06/03/18 07/25/18 (formulary)] Ergocalciferol (Vitamin D2) 50,000 unit PO PEDROZA 07/23/18 07/25/18 [Vitamin D2] Ferrous Sulfate [Iron (65 MG 325 mg PO BID 07/23/18 07/25/18 Elemental)] Previous Rx's Medication Instructions Recorded Levothyroxine Sodium [Synthroid] 25 mcg PO DAILY #30 tab 07/17/18 Acetaminophen [Tylenol] 325 mg PO Q4H #30 tab 07/25/18 ALLERGIES: 1. BEE VENOM. 2. CLARITHROMYCIN. 3. BACTRIM. 4. SULFA. SOCIAL HISTORY: Denies any active tobacco use. FAMILY HISTORY: Denies any lupus disease. Pertinent for morbid obesity and diabetes. REVIEW OF SYSTEMS: CONSTITUTIONAL: Her highest weight is 263 pounds. BMI was 48.6. Height of 5 feet 1.75 inches, her ideal body weight is 131 pounds. Lifetime percent excess weight loss 93% HEENT: No troubles with vision or hearing. ENDOCRINE: A prior history of diabetes type 2. She states this resolved. RESPIRATORY: Denies any obstructive sleep apnea or asthma. CARDIOVASCULAR: Denies any palpitations or heart attacks. GASTROINTESTINAL: Has severe history of disease, especially after her sleeve gastrectomy. Denies any blood in stools. Denies any diarrhea. MUSCULOSKELETAL: Denies any bilateral lower extremity edema. Denies any active joint stiffness. NEURO: Denies any headaches or seizure disorders. PSYCH: Denies depression or suicidal ideation. HEMATOLOGIC: Denies any easy bruising or bleeding. SKIN: No rashes or skin cancer except persistent panniculitis over 6 years. PHYSICAL EXAM: VITAL SIGNS: 5 feet 1.75 inches, 142 pounds. Body mass index 26.4 Vital Signs Temp 98.3 F 03/12/19 17:13 Pulse 58 L 03/12/19 17:13 Resp BP 137/67 03/12/19 17:13 Pulse Ox CONSTITUTIONAL: Well developed and in no acute distress. EYES: Conjuctivae without sclera icterus. Pupils are equally round and reactive to light. Extraocular movements grossly intact. HEAD, EARS, NOSE, THROAT: Moist buccal mucosa. Head is atraumatic, normocephalic. Hears conversational speech. No nasal drainage. NECK: Supple. No JV distention. No thyroidomegaly. RESPIRATORY: Non-labored respirations and equal bilateral excursions. No gross wheezes. CARDIOVASCULAR: Regular rate and rhythm. Palpable 2+ radial pulses. ABDOMEN: Panniculitis. Pannus over 5 to 10 pounds. No peritonitis. LYMPH: No neck lymphadenopathy. No axillary lymphadenopathy. MUSCULOSKELETAL: Nail and fingers with good capillary refill. SKIN: Warm and well perfused with good skin turgor. NEUROLOGIC: Cranial nerves I through XII grossly intact. Sensation upper and extremities intact. No focal or lateralizing signs. PSYCH: Appropriate affect. Alert and oriented to person, place and time. Displays appropriate insight. ASSESSMENT: 1. Morbid obesity due to excess calories, down from 48.6 to 26.4 2. Medically refractory panniculitis 3. Lower back pain from pannus. 4. Hypothyroidism 5. Glucose intolerance. 6. Status post sleeve gastrectomy. 7. Iron-deficiency anemia. 8. Vitamin D deficiency. 9. Central adiposity 10. Status post massive weight loss, 120 pounds. 11. Zinc deficiency. PLAN: 1. Recommend panniculectomy for chronic panniculitis with concomittant severe lower back pain and uncontrolled symptoms despite systemic and local treatment including limitation of activities of daily living. Anticipated resection of 5 to 1 pounds described. Panniculectomy should correct her functional deficits. 2. Recommend 2 week protein diet for optimal recovery 3. Risks of bleeding, needs for drains, flap failure, infection, need for further surgery were described. She is high risk for peter-operative complications with anticipated 10+ skin resection. 4. Recommend bariatric labs 5. Inpatient hospitalization also described 6. DVT prophylaxis. 7. Antibiotic prophylaxis 8. Will need correction of all vitamin deficiencies prior to panniculectomy. 9. Recommend need new pics for 2019. 10. Continue Nystatin powder for interim relief Objective - Vital Signs Vital signs: Vital Signs Temp 98.3 F 03/12/19 17:13 Pulse 58 L 03/12/19 17:13 Resp BP 137/67 03/12/19 17:13 Pulse Ox Intake & Output 03/11/19 03/12/19 03/12/19 18:59 06:59 18:59 Weight 64.864 kg
== END | disposition home or self-care (01) ==
LOC: BARWHC3 15:22
PROVIDERS: ATTEND Surgery Plastic and Reconstructive Surgery
DX: E66.01 Morbid (severe) obesity due to excess calories (principal); M79.3 Panniculitis, unspecified; M54.5 Low back pain; E03.9 Hypothyroidism, unspecified; E74.39 Other disorders of intestinal carbohydrate absorption; D50.9 Iron deficiency anemia, unspecified; E55.9 Vitamin D deficiency, unspecified; E65 Localized adiposity; E60 Dietary zinc deficiency; Z68.26 Body mass index [BMI] 26.0-26.9, adult; Z90.49 Acquired absence of other specified parts of digestive tract; Z98.51 Tubal ligation status; Z98.84 Bariatric surgery status; Z79.899 Other long term (current) drug therapy; Z88.1 Allergy status to other antibiotic agents; Z91.030 Bee allergy status; Z88.2 Allergy status to sulfonamides
CPT/HCPCS: 99211

== ENCOUNTER → 2019-04-19 | Outpatient (CLI) | payer OTHER ==
--- NOTE | 2019-04-19 18:23 | MR ---
EXAMINATION TYPE: MR abdomen wo/w con DATE OF EXAM: 04/19/2019 COMPARISON: CT scan 10/21/2015 HISTORY: Cyst on pancrease CONTRAST: Standard multiplanar, multisequence MRI departmental protocol utilizing 7 mL intravenous Gadavist suleiman olinium contrast. Liver has normal size and contour. The bile ducts are not dilated. There is no discrete liver defect. Liver has normal signal pattern. Spleen is intact. Spleen has normal size and contour. The pancreatic duct appears normal. There is a conglomeration of multiple small cysts in the anterior aspect of the head of the pancreas that measures 17 x 13 mm. The flannery are thin. There is no adrenal mass. The kidneys show normal size and contour. There is no hydronephrosis. There is no evidence of retroperitoneal adenopathy. There is no ascites. There is no evidence of pleural e ffusion. Heart size is normal. Stomach appears normal. Contrast images show no pathologic enhancement. There is normal contrast opacification of the abdomin al aorta and its branches. There is contrast opacification of the portal vein. IMPRESSION: Nonenhancing thin-walled conglomeration of cysts at the anterior aspect of the pancreatic head sugges ts benign disease. The cysts appear new compared to old CT scan. I do not have a more recent exam to compare. This could relate to old inflammatory disease.
== END ==
LOC: RADMRIMAIN 11:46
PROVIDERS: ATTEND Family Medicine
DX: K86.2 Cyst of pancreas (principal)
CPT/HCPCS: 74183; A9585

== ENCOUNTER → 2019-09-19 | Outpatient (CLI) | payer OTHER ==
[2019-09-19 12:28] LABS: Basophils % (A) 1 %; Eosinophils # (A) 0.1 k/uL (0-0.7); Eosinophils % (A) 2 %; HCT 39.5 % (34.0-46.0); HGB 12.6 gm/dL (11.4-16.0); Lymphocytes # (A) 1.6 k/uL (1.0-4.8); Lymphocytes % (A) 32 %; MCH 29.6 pg (25.0-35.0); MCV 92.4 fL (80.0-100.0); Mean Platelet Volume 7.1; Monocytes # (A) 0.2 k/uL (0-1.0); Monocytes % (A) 4 %; Neutrophils % (A) 59 %; Platelet Count 269 k/uL (150-450); RBC 4.27 m/uL (3.80-5.40); RDW 13.7 % (11.5-15.5)
[2019-09-19 12:38] LABS: ALT 38 U/L (4-34); AST 34 U/L (14-36); African American GFR (CKD) >90 (>60 ml/min/1.73 sqM); Albumin 4.4 g/dL (3.5-5.0); Alkaline Phosphatase 59 U/L (38-126); Anion Gap 6 mmol/L; Blood Urea Nitrogen 13 mg/dL (7-17); Calcium 9.9 mg/dL (8.4-10.2); Carbon Dioxide 28 mmol/L (22-30); Chloride 107 mmol/L (98-107); Glucose 106 mg/dL (74-99); Non-African American GFR(CKD) >90 (>60 ml/min/1.73 sqM); Sodium 141 mmol/L (137-145); Total Bilirubin 0.4 mg/dL (0.2-1.3); Total Protein 7.5 g/dL (6.3-8.2)
== END | disposition home or self-care (01) ==
LOC: LABPAT 10:50
PROVIDERS: ATTEND Surgery Plastic and Reconstructive Surgery
DX: Z01.818 Encounter for other preprocedural examination (principal)
CPT/HCPCS: 36415; 80053; 85025

== ENCOUNTER 2019-09-22 09:15 | Observation (INO) | payer OTHER ==
[2019-09-19 09:50] VITALS: BMI 26.2
--- NOTE | 2019-09-21 19:32 | P.GSHP ---
History of Present Illness H&P Date: 09/21/19 CHIEF COMPLAINT: Panniculitis HISTORY OF PRESENT ILLNESS: Zoila Skaggs is a 53-year-old female who comes in with recurrent panniculitis. She has more rash along her apron uncontrolled with prescription creams and powders. She comes after 6 months where her weight is stable. She has functional deficit as a result of her pannus including lower back pain. She has panniculitis for over 6 years. She also reports trouble with her thyroid. Her highest weight is 263 pounds. BMI was 48.6. Height of 5 feet 1.75 inches, her ideal body weight is 131 pounds. Today she comes in weighing 142 pounds from 141 pounds, 3 months ago. She has gained 1 pound in 3 months ago. Lifetime weight loss of 120 pounds. Lifetime percent excess weight loss 91 % PAST MEDICAL HISTORY: 1. Morbid obesity, BMI 48.6 2. Seasonal allergies. 3. Gastroesophageal reflux disease. 4. Panniculitis 5. Iron deficiency anemia PAST SURGICAL HISTORY: 1. Adjustable gastric band. 2. Removal of adjustable gastric band with sleeve gastrectomy, 1-stage procedure. 3. . 4. Tubal ligation. 5. Upper endoscopy with biopsy. 6. Cholecystectomy MEDICATIONS: Home Medications Medication Instructions Recorded Confirmed Cetirizine HCl [Zyrtec] 10 mg PO DAILY 12/02/14 07/25/18 Lisinopril [Zestril] 5 mg PO QAM 06/03/18 07/25/18 Multivitamins, Thera [Multivitamin 1 tab PO DAILY 06/03/18 07/25/18 (formulary)] Ergocalciferol (Vitamin D2) 50,000 unit PO PEDROZA 07/23/18 07/25/18 [Vitamin D2] Ferrous Sulfate [Iron (65 MG 325 mg PO BID 07/23/18 07/25/18 Elemental)] Previous Rx's Medication Instructions Recorded Levothyroxine Sodium [Synthroid] 25 mcg PO DAILY #30 tab 07/17/18 Acetaminophen [Tylenol] 325 mg PO Q4H #30 tab 07/25/18 ALLERGIES: 1. BEE VENOM. 2. CLARITHROMYCIN. 3. BACTRIM. 4. SULFA. SOCIAL HISTORY: Denies any active tobacco use. FAMILY HISTORY: Denies any lupus disease. Pertinent for morbid obesity and diabetes. REVIEW OF SYSTEMS: CONSTITUTIONAL: Her highest weight is 263 pounds. BMI was 48.6. Height of 5 feet 1.75 inches, her ideal body weight is 131 pounds. Lifetime percent excess weight loss 93% HEENT: No troubles with vision or hearing. ENDOCRINE: A prior history of diabetes type 2. She states this resolved. RESPIRATORY: Denies any obstructive sleep apnea or asthma. CARDIOVASCULAR: Denies any palpitations or heart attacks. GASTROINTESTINAL: Has severe history of disease, especially after her sleeve gastrectomy. Denies any blood in stools. Denies any diarrhea. MUSCULOSKELETAL: Denies any bilateral lower extremity edema. Denies any active joint stiffness. NEURO: Denies any headaches or seizure disorders. PSYCH: Denies depression or suicidal ideation. HEMATOLOGIC: Denies any easy bruising or bleeding. SKIN: No rashes or skin cancer except persistent panniculitis over 6 years. PHYSICAL EXAM: VITAL SIGNS: 5 feet 1.75 inches, 142 pounds. Body mass index 26.4 CONSTITUTIONAL: Well developed and in no acute distress. EYES: Conjuctivae without sclera icterus. Pupils are equally round and reactive to light. Extraocular movements grossly intact. HEAD, EARS, NOSE, THROAT: Moist buccal mucosa. Head is atraumatic, normocephalic. Hears conversational speech. No nasal drainage. NECK: Supple. No JV distention. No thyroidomegaly. RESPIRATORY: Non-labored respirations and equal bilateral excursions. No gross wheezes. CARDIOVASCULAR: Regular rate and rhythm. Palpable 2+ radial pulses. ABDOMEN: Panniculitis. Pannus over 5 to 10 pounds. No peritonitis. LYMPH: No neck lymphadenopathy. No axillary lymphadenopathy. MUSCULOSKELETAL: Nail and fingers with good capillary refill. SKIN: Warm and well perfused with good skin turgor. NEUROLOGIC: Cranial nerves I through XII grossly intact. Sensation upper and extremities intact. No focal or lateralizing signs. PSYCH: Appropriate affect. Alert and oriented to person, place and time. Displays appropriate insight. ASSESSMENT: 1. Morbid obesity due to excess calories, down from 48.6 to 26.4 2. Medically refractory panniculitis 3. Lower back pain from pannus. 4. Hypothyroidism 5. Glucose intolerance. 6. Status post sleeve gastrectomy. 7. Iron-deficiency anemia. 8. Vitamin D deficiency. 9. Central adiposity 10. Status post massive weight loss, 120 pounds. 11. Zinc deficiency. PLAN: 1. Recommend panniculectomy for chronic panniculitis with concomittant severe lower back pain and uncontrolled symptoms despite systemic and local treatment including limitation of activities of daily living. Anticipated resection of 5 to 1 pounds described. Panniculectomy should correct her functional deficits. 2. Recommend 2 week protein diet for optimal recovery 3. Risks of bleeding, needs for drains, flap failure, infection, need for further surgery were described. She is high risk for peter-operative complications with anticipated 10+ skin resection. 4. Inpatient hospitalization also described 5. DVT prophylaxis. 6. Antibiotic prophylaxis Past Medical History Past Medical History: Diabetes Mellitus, GERD/Reflux Additional Past Medical History / Comment(s): TYPE 2 DIABETES CONTROLLED WITH DIET & EXERCISE (pt takes Lisinopril not for BP but to protect kidneys from type 2 DM). HAS HX chronic ANEMIA & LOW IRON levels (has received Iron infusions (most recent 07/04/18 and 07/10/18) History of Any Multi-Drug Resistant Organisms: None Reported Past Surgical History: Bariatric Surgery, Section, Hysterectomy, Tubal Ligation Additional Past Surgical History / Comment(s): LAP BAND IN 2007, LAB BAND R EMOVED IN 2013., GASTRIC SLEEVE 2013. X 2 (AUGUST 1987 & JUNE 2004)-Tubal Ligation JUNE 2004, HYSTERECTOMY 2013, RnY (gastric bypass 2015), left oopherectomy 2015 Past Anesthesia/Blood Transfusion Reactions: Family History of Problems w/ Anesthesia Additional Past Anesthesia/Blood Transfusion Reaction / Comment(s): MOTHER & SISTER HAD DIFFICULTY IN WAKING UP but she has not had any problems personally Smoking Status: Former smoker - Past Family History Father Family Medical History: Neurologic Disorder Additional Family Medical History / Comment(s): Patient states her father had "super high iron levels", Sjogrens syndrome, at age 62 from Marcie Gherig's disease Mother History Unknown: Yes Family Medical History: No Reported History Medications and Allergies Home Medications Medication Instructions Recorded Confirmed Type Cetirizine HCl [Zyrtec] 10 mg PO DAILY 12/02/14 09/19/19 History Multivitamins, Thera [Multivitamin 1 tab PO DAILY 06/03/18 09/19/19 History (formulary)] lisinopriL [Zestril] 5 mg PO QAM 06/03/18 09/19/19 History Ergocalciferol (Vitamin D2) 50,000 unit PO PEDROZA 07/23/18 09/19/19 History [Vitamin D2] Acetaminophen [Tylenol] 325 mg PO Q4H #30 tab 07/25/18 09/19/19 Rx Levothyroxine Sodium [Synthroid] 50 mcg PO DAILY #30 tab 12/25/18 09/19/19 Rx Allergies Allergy/AdvReac Type Severity Reaction Status Date / Time clarithromycin [From Biaxin] Allergy Dyspnea, Verified 09/19/19 09:34 Hives sulfamethoxazole Allergy Dyspnea Verified 09/19/19 09:34 [From Bactrim] trimethoprim [From Bactrim] Allergy Dyspnea Verified 09/19/19 09:34 venom-honey bee Allergy Anaphylaxis Verified 09/19/19 09:34 [bee venom (honey bee)]
[~2019-09-22 09:15] MED LIST changes: +ACETAMINOPHEN TAB 500 MG TAB ONE; +ACETAMINOPHEN TAB 500 MG TAB PO STA; +GABAPENTIN 300 MG CAP PO STA; +HEPARIN SODIUM,PORCINE 5,000 UNIT/ML 1 ML VIAL ONE; -HEPARIN SODIUM,PORCINE 5,000 UNIT/ML 1 ML VIAL SQ ONE; +HEPARIN SODIUM,PORCINE 5,000 UNIT/ML 1 ML VIAL SQ STA; -INDOCYANINE GREEN 25 MG VIAL IV STA; -LACTATED RINGERS 1,000 ML IV SCH; +LIDOCAINE 1% (10MG/ML) FOR IV START INTRADERMA PRN; -LIDOCAINE 1% 20 ML VIAL (10MG/ML) FOR IV START INTRADERMA PRN; -MIDAZOLAM 2 MG/2 ML VIAL IV PRN; +ONDANSETRON 4 MG/2 ML VIAL ONE; -SCOPOLAMINE 1.5MG/72HR PATCH TRANSDERM SCH; +SCOPOLAMINE 1.5MG/72HR PATCH TRANSDERM STA; +TAMSULOSIN 0.4 MG CAP.ER.24H PO ONE; -ceFAZolin IN SWFI 2 GM/20 ML SYRINGE IVP ONE
[2019-09-22] MEDS ORDERED: LACTATED RINGERS 1,000 ML IV ONE ×4 (09:52→15:00)
[2019-09-22 10:10] LABS: Glucose,Whole Blood 122 mg/dL (75-99)
[2019-09-22 10:41] VITALS: RESP 16
--- NOTE | 2019-09-22 10:49 | P.ANPRN ---
Procedure Note - Anesthesia - Nerve Block Performed Bilateral Transversus Abdominis Single Time Out Performed: Yes (1025) Date of Procedure: 09/22/19 Procedure Start Time: Procedure Stop Time: Location of Patient: PreOp Indication: Acute Post-Operative Pain, Requested by Surgeon Specifically requested for management of pain by : Lissy Elizabeth Sedation Type: Sedate with meaningful contact maintained Preparation: Sterile Prep Position: Supine Catheter: None Needle Types: Pajunk Needle Gauge: 20, 21 Ultrasound used to visualize needle placement: Yes Ultrasound used to observe medication spread: Yes Injectate: 0.5% Ropivacaine (see comment for volume) (30 total 15cc each side) Blood Aspirated: No Pain Paresthesia on Injection Noted: No Resistance on Injection: Normal Image Stored and Saved: Yes Events: Uneventful and Well Tolerated
[2019-09-22] MEDS ORDERED: GLYCOPYRROLATE 0.2 MG/ML 2 ML VIAL ONE (11:37)
[2019-09-22] MEDS ORDERED: NEOSTIGMINE 1 MG/ML 10 ML VIAL ONE (11:37)
[2019-09-22] MEDS ORDERED: ROPIVACAINE 5 MG/ML 30 ML VIAL ONE (11:37)
[2019-09-22] MEDS ORDERED: PHENYLEPHRINE-0.9% NACL SYG 1 MG/10 ML SYRINGE ONE (11:37)
[2019-09-22] MEDS ORDERED: fentaNYL (PF) 50 MCG/ML 2 ML AMP ONE (11:37)
[2019-09-22] MEDS ORDERED: ePHEDrine SULFATE/0.9% NACL/PF 50 MG/5 ML SYRINGE IV ONE (11:37)
[2019-09-22] MEDS ORDERED: HYDROmorphone (PF) 1 MG/ML ONE (11:37)
[2019-09-22] MEDS ORDERED: PROPOFOL 10 MG/ML 20 ML VIAL IV ONE (11:37)
[2019-09-22] MEDS ORDERED: MIDAZOLAM 2 MG/2 ML VIAL ONE (11:37)
[2019-09-22] MEDS ORDERED: ROCURONIUM BROMIDE 10 MG/ML 5 ML VIAL IV ONE (11:37)
[2019-09-22] MEDS ORDERED: LIDOCAINE 1% INJ 10MG/ML (20 ML MDV) ONE (11:37)
[2019-09-22] MEDS ORDERED: ceFAZolin 1,000 MG VIAL IVPB ONE (11:42)
[2019-09-22] MEDS ORDERED: diphenhydrAMINE 50 MG/ML 1 ML VIAL IVP PRN (15:48)
[2019-09-22] MEDS ORDERED: NALOXONE 0.4 MG/ML 1 ML VIAL IV PRN (15:48)
[2019-09-22] MEDS ORDERED: HYDROmorphone 1 MG/ML 1 ML SYRINGE IVP PRN (15:48)
[2019-09-22] MEDS ORDERED: ONDANSETRON 4 MG/2 ML VIAL IVP PRN (15:48)
--- NOTE | 2019-09-22 15:57 | P.OP ---
Date of Procedure: 09/22/19 Description of Procedure: SURGEON: BHUMIKA LOUIS MD PREOPERATIVE DIAGNOSES: 1. Morbid obesity due to excess calories, down from 48.6 to 26.4 2. Medically refractory panniculitis 3. Lower back pain from pannus. 4. Hypothyroidism 5. Glucose intolerance. 6. Status post sleeve gastrectomy. 7. Iron-deficiency anemia. 8. Vitamin D deficiency. 9. Central adiposity 10. Status post massive weight loss, 120 pounds. 11. Zinc deficiency. POSTOPERATIVE DIAGNOSES: 1. Morbid obesity due to excess calories, down from 48.6 to 26.4 2. Medically refractory panniculitis 3. Lower back pain from pannus. 4. Hypothyroidism 5. Glucose intolerance. 6. Status post sleeve gastrectomy. 7. Iron-deficiency anemia. 8. Vitamin D deficiency. 9. Central adiposity 10. Status post massive weight loss, 120 pounds. 11. Zinc deficiency. OPERATION: 1. Panniculectomy, 7.10 pounds. ANESTHESIA: General ESTIMATED BLOOD LOSS: 150 mL SPECIMENS REMOVED: Pannus 7.10 pounds. COMPLICATIONS: None. CONDITION: Stable. DRAINS: Two #19 Iwllie drains below abdominal flap extending through the pubis. OPERATIVE FINDINGS: 1. Pannus weighing 7.10 pounds, excised. INDICATIONS: Zoila Skaggs is a 53-year-old female who comes in with recurrent panniculitis. She has functional deficit as a result of her pannus including lower back pain. She has panniculitis for over 6 years. Her highest weight is 263 pounds. BMI was 48.6. Height of 5 feet 1.75 inches, her ideal body weight is 131 pounds. Today she comes in weighing 142 pounds. Lifetime weight loss of 120 pounds. Lifetime percent excess weight loss 91 % Despite medical therapy with prescription powders, she has developed severe medical refractory panniculitis. Given her clinical symptoms, including massive weight loss, she elected for surgical intervention with a panniculectomy. Benefits and risks of the procedure including bleeding, infection, risk of flap failure, abdominal wall seromas, chronic pain were described at length. Informed consent was obtained. DESCRIPTION: In the preanesthesia care unit the patient was marked with an indelible marker. She had also been given heparin subcutaneously. The patient was brought into the operating room and laid in supine position. After general induction, a Mares catheter was placed. The abdomen was then prepped and draped in standard sterile fashion using ChloraPrep. The skin was prepped as far laterally to the back, inferiorly to the upper thighs and superiorly to above the bilateral breasts. A timeout protocol was confirmed with the surgical team regarding patient's name, procedure to be performed, including preoperative medications. She had received Ancef 2 grams IV antibiotics. Once the time-out protocol was confirmed with the surgical team, the patient was re-marked with indelible marker whereby the midline of the xiphoid to the mons pubis was marked. The anterior/superior iliac spine along the bilateral hips was also marked. Approximately 7 cm above the pubis commissure a transverse incision was made for the inferior portion of the flap. Using a #10 blade, the incision was taken from the midline laterally to above the anterior/superior iliac spine, initially on the left side of the patient and then on the right side of the patient. The umbilicus was transected. Electro-Bovie cautery was used to control for hemostasis. The dissection was taken down to the level of the fascia. Landmarks used were the xiphoid process as well as the bilateral costal margins for the superior margin. Care was taken to avoid any creation of dog ears during the dissection. Hemostasis was once again checked with electro-Bovie cautery and all defects were addressed. Attention was now brought to closure of the flap. Using stainless steel skin tasneem, the midline was once again marked of the upper flap as well as the pubic commissure. The patient was placed in a flexed positio n of approximately 20 degrees at the hips. The pannus was extended inferiorly to the feet. The upper flap was created once the excess skin was excised. Again care was taken to avoid any dog ears along the lateral aspect of the incisions. Once excised, the pannus was weighed at 7.10 pounds. The upper and lower flaps were reapproximated at the midline and then laterally to the skin with skin tasneem. Once reapproximated, the skin was closed in layers using 0 Vicryl for the superficial fascial system followed by running 3-0 Monocryl for the deep dermis in a running subcuticular fashion. Prior to skin closure, two round #19 Willie drains were placed underneath the flap and brought out just inferior to the incision along the pubis. Drain stitch using 2-0 nylon was placed. Once the incision was closed, bulb suction was attached. Hemostasis was checked. At the end of the procedure, the needle, sponge and instrument count was verified correct. Exofin tape was placed along the length of the incision. Optifoam dressings were applied over the incision and used as a drain sponge. The patient was then transferred to a hospital bed in a beach chair position. An abdominal binder was placed and marked. The patient was taken to the postanesthesia care unit in stable condition, awake and extubated.
[2019-09-22] MEDS: LACTATED RINGERS 1,000 ML IV SCH (17:31)
[2019-09-22] MEDS: ACETAMINOPHEN TAB 325 MG TAB PO SCH ×2 (17:32→19:49)
[2019-09-22] MEDS ORDERED: KETOROLAC 15 MG/ML 1 ML VIAL IVP SCH (18:00)
[2019-09-22] MEDS: SODIUM CHLORIDE 0.9% 1,000 ML IV SCH (19:31)
[2019-09-22] MEDS: KETOROLAC 30 MG/ML 1 ML VIAL IVP SCH (19:49)
[2019-09-22 20:41] LABS: Glucose,Whole Blood 203 mg/dL (75-99)
[2019-09-23] MEDS: KETOROLAC 30 MG/ML 1 ML VIAL IVP SCH ×4 (00:16→17:43)
[2019-09-23] MEDS: ACETAMINOPHEN TAB 325 MG TAB PO SCH ×5 (00:16→15:54)
[2019-09-23] MEDS: LACTATED RINGERS 1,000 ML IV SCH (05:06)
[2019-09-23 05:34] LABS: Hepatitis B Surface Antigen Non-Reactive (Non-Reactive); Hepatitis C IgG Antibody Non-Reactive (Non-Reactive)
[2019-09-23 07:23] LABS: Glucose,Whole Blood 103 mg/dL (75-99)
[2019-09-23 07:38] VITALS: TEMP 98.3
[2019-09-23 08:32] LABS: Basophils % (A) 0 %; Eosinophils # (A) 0.2 k/uL (0-0.7); Eosinophils % (A) 2 %; HCT 33.6 % (34.0-46.0); HGB 10.9 gm/dL (11.4-16.0); Lymphocytes % (A) 14 %; MCHC 32.4 g/dL (31.0-37.0); MCV 92.6 fL (80.0-100.0); Mean Platelet Volume 6.7; Monocytes # (A) 0.3 k/uL (0-1.0); Monocytes % (A) 4 %; Neutrophils # (A) 5.8 k/uL (1.3-7.7); Neutrophils % (A) 79 %; Platelet Count 233 k/uL (150-450); RBC 3.63 m/uL (3.80-5.40); RDW 13.8 % (11.5-15.5); WBC 7.4 k/uL (3.8-10.6)
[2019-09-23 08:50] LABS: African American GFR (CKD) >90 (>60 ml/min/1.73 sqM); Anion Gap 3 mmol/L; Blood Urea Nitrogen 10 mg/dL (7-17); Calcium 8.5 mg/dL (8.4-10.2); Carbon Dioxide 27 mmol/L (22-30); Chloride 107 mmol/L (98-107); Magnesium 1.7 mg/dL (1.6-2.3); Non-African American GFR(CKD) >90 (>60 ml/min/1.73 sqM); Sodium 137 mmol/L (137-145)
[2019-09-23] MEDS ORDERED: ENOXAPARIN 30 MG/0.3 ML SYRINGE SQ SCH (09:00)
[2019-09-23] MEDS ORDERED: PANTOPRAZOLE 40 MG/10 ML VIAL IV SCH (09:00)
--- NOTE | 2019-09-23 11:06 | P.DS ---
Providers Date of admission: 09/23/19 05:31 Expected date of discharge: 09/23/19 Attending physician: Lissy Elizabeth Consults: 09/22/19 06:03 Consult to Anesthesia Routine Consulting Provider: Anesthesia,Services Consult Reason/Comments: Abdominal wall block Primary care physician: Srinivasa Gaston [facility] Hospital Course: 54-year-old female who underwent panniculectomy with Dr. Elizabeth on 09/22/2019. Patient is doing well postoperatively without any immediate complications. Pain is controlled on oral medications. Vital signs are stable. Tolerating diet without nausea or vomiting. She is stable for discharge home today. Please see EMR for further hospital course details. Discharge Diagnosis 1. Morbid obesity due to excess calories, down from 48.6 to 26.4 2. Medically refractory panniculitis 3. Lower back pain from pannus. 4. Hypothyroidism 5. Glucose intolerance. 6. Status post sleeve gastrectomy. 7. Iron-deficiency anemia. 8. Vitamin D deficiency. 9. Central adiposity 10. Status post massive weight loss, 120 pounds. 11. Zinc deficiency. Nurse practitioner note has been reviewed by physician. Signing provider agrees with the documented findings, assessment, and plan of care. Plan - Discharge Summary Discharge Rx Participant: Yes New Discharge Prescriptions: No Action Cetirizine HCl [Zyrtec] 10 mg PO DAILY Multivitamins, Thera [Multivitamin (formulary)] 1 tab PO DAILY lisinopriL [Zestril] 5 mg PO QAM Ergocalciferol (Vitamin D2) [Vitamin D2] 50,000 unit PO PEDROZA Acetaminophen [Tylenol] 325 mg PO Q4H #30 tab Levothyroxine Sodium [Synthroid] 50 mcg PO DAILY #30 tab Discharge Medication List Cetirizine HCl [Zyrtec] 10 mg PO DAILY 12/02/14 [History] Multivitamins, Thera [Multivitamin (formulary)] 1 tab PO DAILY 06/03/18 [History] lisinopriL [Zestril] 5 mg PO QAM 06/03/18 [History] Ergocalciferol (Vitamin D2) [Vitamin D2] 50,000 unit PO PEDROZA 07/23/18 [History] Acetaminophen [Tylenol] 325 mg PO Q4H #30 tab 07/25/18 [Rx] Levothyroxine Sodium [Synthroid] 50 mcg PO DAILY #30 tab 12/25/18 [Rx]
[2019-09-23 12:04] LABS: Glucose,Whole Blood 125 mg/dL (75-99)
[2019-09-23] MEDS: SODIUM CHLORIDE 0.9% 1,000 ML IV SCH (12:44)
[2019-09-23 16:12] VITALS: BP 103/67; PULSE 63
[2019-09-23 17:19] LABS: Glucose,Whole Blood 99 mg/dL (75-99)
--- NOTE | 2019-09-23 19:15 | P.PN ---
Progress Note - Text Progress Note Date: 09/23/19 She reports pain well controlled with Tylenol. Also JPs sanguinous and fills with walking. No symptoms of moderate weakness. Abdominal binder re-adjusted for snug fit. Follow up in 48 hrs at bariatric center. Stable for discharge. Walking with flexed hips reviewed and laying in bed in flexion also described.
[2019-09-23 20:55] LABS: Glucose,Whole Blood 132 mg/dL (75-99)
[2019-09-24] MEDS ORDERED: bisacodyL 5 MG TABLET.DR PO PRN (08:00)
== END 2019-09-23 21:55 ==
LOC: OR 09:15 → 4SSUR 17:19 → OR 09-23 05:30 → 4SSUR 09-23 05:31
PROVIDERS: ADMIT Surgery Plastic and Reconstructive Surgery; ATTEND Surgery Plastic and Reconstructive Surgery
DX: M79.3 Panniculitis, unspecified (principal); E66.01 Morbid (severe) obesity due to excess calories; E03.9 Hypothyroidism, unspecified; E11.9 Type 2 diabetes mellitus without complications; D50.9 Iron deficiency anemia, unspecified; E55.9 Vitamin D deficiency, unspecified; E65 Localized adiposity; E60 Dietary zinc deficiency; J30.2 Other seasonal allergic rhinitis; K21.9 Gastro-esophageal reflux disease without esophagitis; Z98.84 Bariatric surgery status; Z88.1 Allergy status to other antibiotic agents; Z88.2 Allergy status to sulfonamides; Z91.030 Bee allergy status; Z68.26 Body mass index [BMI] 26.0-26.9, adult; Z98.890 Other specified postprocedural states; Z98.51 Tubal ligation status; Z90.49 Acquired absence of other specified parts of digestive tract; Z79.899 Other long term (current) drug therapy; Z79.890 Hormone replacement therapy; Z90.710 Acquired absence of both cervix and uterus; Z90.721 Acquired absence of ovaries, unilateral; Z83.49 Family history of other endocrine, nutritional and metabolic diseases; Z83.3 Family history of diabetes mellitus; Z84.89 Family history of other specified conditions; Z87.891 Personal history of nicotine dependence; Z82.0 Family history of epilepsy and other diseases of the nervous system; Z83.2 Family history of diseases of the blood and blood-forming organs and certain disorders involving the immune mechanism; Z82.69 Family history of other diseases of the musculoskeletal system and connective tissue
CPT/HCPCS: 97161; 97165; 64488; 86701; 80051; 82310; 82565; 83735; 84100; 84520; 85025; 15830; G0378; J2250; J1100; J2710; J0690 ×3; J2405; J2001; J3010; J1885 ×2; J1650; J1170; J2795; J2370; J2704; C9113; 86704; 86803; 87340

== ENCOUNTER → 2019-09-25 | Outpatient (CLI) | payer OTHER ==
[2019-09-25 11:36] VITALS: BP 135/82; PULSE 78; TEMP 98.5; BMI 25.9
[2019-09-25 13:13] LABS: Basophils % (A) 0 %; Eosinophils # (A) 0.2 k/uL (0-0.7); Eosinophils % (A) 4 %; HCT 33.6 % (34.0-46.0); HGB 10.5 gm/dL (11.4-16.0); Lymphocytes # (A) 1.3 k/uL (1.0-4.8); Lymphocytes % (A) 23 %; MCH 29.1 pg (25.0-35.0); MCHC 31.1 g/dL (31.0-37.0); MCV 93.5 fL (80.0-100.0); Mean Platelet Volume 6.9; Monocytes # (A) 0.2 k/uL (0-1.0); Monocytes % (A) 4 %; Neutrophils # (A) 3.6 k/uL (1.3-7.7); Neutrophils % (A) 67 %; Platelet Count 282 k/uL (150-450); RDW 13.7 % (11.5-15.5); WBC 5.5 k/uL (3.8-10.6)
== END | disposition home or self-care (01) ==
LOC: BARWHC3 10:52
PROVIDERS: ATTEND Surgery Plastic and Reconstructive Surgery
DX: Z01.818 Encounter for other preprocedural examination (principal)
CPT/HCPCS: 36415; 85025; 99212

== ENCOUNTER → 2019-10-06 | Outpatient (CLI) | payer OTHER ==
[2019-10-06 10:50] VITALS: BP 135/81; PULSE 76; TEMP 98; BMI 25.0
== END | disposition home or self-care (01) ==
LOC: BARWHC3 10:03
PROVIDERS: ATTEND Surgery Plastic and Reconstructive Surgery
DX: Z48.89 Encounter for other specified surgical aftercare (principal); Z98.84 Bariatric surgery status
CPT/HCPCS: 99212

== ENCOUNTER → 2020-12-28 | Outpatient (CLI) | payer OTHER ==
[2020-12-28 16:58] LABS: INR 0.9 (<1.2); Partial Thromboplastin Time 21.9 sec (22.0-30.0)
[2020-12-28 23:58] LABS: HCT 37.1 % (37.2-46.3); HGB 11.3 g/dL (12.0-15.0); MCHC 30.5 g/dL (32.0-37.0); MCV 91.8 fL (80.0-97.0); Mean Platelet Volume 9.7 fL (9.5-12.2); Platelet Count 323 X 10*3/uL (140-440); RBC 4.04 X 10*6/uL (4.10-5.20); RDW 14.2 % (11.5-14.5); WBC 8.54 X 10*3/uL (4.50-10.00)
[2020-12-29 06:16] LABS: % Iron Saturation 7.26 (12.00-45.00); ALT 34 U/L (8-44); AST 23 U/L (13-35); African American GFR (CKD) 112.7 (60.0-200.0); Albumin 4.7 g/dL (3.8-4.9); Albumin/Globulin Ratio 1.61 (1.60-3.17); Alkaline Phosphatase 87 U/L (41-126); BUN/Creat Ratio 23.52 Ratio (12.00-20.00); Blood Urea Nitrogen 16.7 mg/dL (9.0-27.0); Calcium 9.7 mg/dL (8.7-10.3); Carbon Dioxide 23.2 mmol/L (21.6-31.8); Chloride 104 mmol/L (96-109); Chol/HDL Ratio 3.01 Ratio; Ferritin 8.7 ng/mL (10.0-291.0); Globulin 2.9 g/dL (1.6-3.3); Glucose 87 mg/dL (70-110); Iron 30 ug/dL (50-170); LDL Cholesterol,Calculated 103.2 mg/dL (0.0-131.0); Magnesium 2.2 mg/dL (1.5-2.4); Non-African American GFR(CKD) 97.2 (60.0-200.0); Phosphorus 3.8 mg/dL (2.4-5.1); Potassium 4.2 mmol/L (3.5-5.5); Sodium 142 mmol/L (135-145); Total Bilirubin <0.20 mg/dL (0.30-1.20); Total Iron Binding Capacity 416 ug/dL (228-460); Total Protein 7.6 g/dL (6.2-8.2); VLDL Calculation 18.98 mg/dL (5.00-40.00)
[2020-12-29 14:05] LABS: Zinc, Serum 69 ug/dL (60-130)
[2020-12-30 08:50] LABS: Vitamin A 43 ug/dL (38-106)
== END | disposition home or self-care (01) ==
LOC: LABWHC1 16:16
PROVIDERS: ATTEND Surgery Plastic and Reconstructive Surgery
DX: E66.01 Morbid (severe) obesity due to excess calories (principal); E89.1 Postprocedural hypoinsulinemia; K90.89 Other intestinal malabsorption; E55.9 Vitamin D deficiency, unspecified; K74.1 Hepatic sclerosis; K50.90 Crohn's disease, unspecified, without complications; N19 Unspecified kidney failure; D50.8 Other iron deficiency anemias
CPT/HCPCS: 36415; 80053; 80061; 82306; 82525; 82607; 82728; 82746; 83036; 83540; 83550; 83735; 83970; 84100; 84134; 84255; 84425; 84443; 84590; 84630; 85027; 85610; 85730

== ENCOUNTER → 2021-09-14 | Outpatient (CLI) | payer OTHER ==
--- NOTE | 2021-09-15 09:38 | MM ---
Reason for Exam: Screening (asymptomatic). Last mammogram was performed 4 year(s) and 9 month(s) ago. Patient History: Menarche at age 15. First Full-Term at age 22. Left ovary removed at age 46. Right ovary removed at age 46. Hysterectomy at age 46. Postmenopausal. Patient has history of breast feeding. Currently using Progesterone, starting at age 46. Risk Values: Catalina 5 year model risk: 1.0%. NCI Lifetime model risk: 7.7%. Prior Study Comparison: 12/02/2008 Bilateral Screening Mammogram, [facility]. 10/15/2012 Bilateral Screening Mammogram, [facility]. 11/27/2016 Bilateral Screening Mammogram, [facility]. Tissue Density: The breast tissue is heterogeneously dense. This may lower the sensitivity of mammography. Findings: Analyzed By CAD. There is no suspicious group of microcalcifications or new suspicious mass in either breast. Overall Assessment: Negative, BI-RAD 1 Management: Screening Mammogram of both breasts in 1 year. A clinical breast exam by your physician is recommended on an annual basis and results should be correlated with mammographic findings. Electronically signed and approved by: Nba Delong DO
== END | disposition home or self-care (01) ==
LOC: RADMAMWWP 13:25
PROVIDERS: ATTEND Family Medicine
DX: Z12.31 Encounter for screening mammogram for malignant neoplasm of breast (principal); Z78.0 Asymptomatic menopausal state
CPT/HCPCS: 77063; 77067

== ENCOUNTER 2022-12-04 08:50 | Emergency (ER) | payer OTHER ==
[2022-12-04] MEDS ORDERED: KETOROLAC 15 MG/ML 1 ML VIAL IM STA (09:35)
[2022-12-04] MEDS ORDERED: LIDOCAINE 5% PATCH TOPICAL ONE (09:37)
--- NOTE | 2022-12-04 09:47 | ED ---
Neck Injury/Pain HPI - General Chief Complaint: Neck Pain/Injury Stated Complaint: headaches/Neck pain Time Seen by Provider: 12/04/22 09:15 Source: patient, RN notes reviewed Mode of arrival: ambulatory Limitations: no limitations - History of Present Illness Initial Comments: This is a 57-year-old female who presents to the emergency department for neck pain. Symptoms started 3 days ago. She does have some pain in the left shoulder as well. She does not have any numbness or tingling going down the arm. Denies any chest pain, shortness of breath, or cardiac history. Pain is worse with movement and to the touch. Denies any injuries. Patient has had to work a lot of overtime lately, where she sits somewhat hunched over and staring at computers for several hours a day. She is taking ibuprofen with no relief in symptoms. States that she is having difficulty even brushing her teeth due to the pain. Patient very tearful on examination. Denies any fevers, chills, sore throat, cough, dyspnea, chest pain, palpitations, abdominal pain, nausea, vomiting, diarrhea, or headaches. MD Complaint: neck pain Onset/Timin -: days(s) - Related Data Home Medications Medication Instructions Recorded Confirmed Cetirizine HCl [Zyrtec] 10 mg PO DAILY 12/02/14 10/29/19 Multivitamins, Thera [Multivitamin 1 tab PO DAILY 06/03/18 10/29/19 (formulary)] lisinopriL [Zestril] 5 mg PO QAM 06/03/18 10/29/19 Previous Rx's Medication Instructions Recorded Levothyroxine Sodium [Synthroid] 50 mcg PO DAILY #30 tab 12/25/18 Lidocaine 5% Patch [Lidoderm 5% 1 patch TOPICAL DAILY PRN #30 patch 12/04/22 Patch] methocarbamoL [Robaxin-750] 750 mg PO QID PRN #30 tab 12/04/22 predniSONE 50 mg PO DAILY 5 Days #5 tab 12/04/22 Allergies Allergy/AdvReac Type Severity Reaction Status Date / Time clarithromycin [From Biaxin] Allergy Dyspnea, Verified 10/29/19 13:13 Hives sulfamethoxazole Allergy Dyspnea Verified 10/29/19 13:13 [From Bactrim] trimethoprim [From Bactrim] Allergy Dyspnea Verified 10/29/19 13:13 venom-honey bee Allergy Anaphylaxis Verified 10/29/19 13:13 [bee venom (honey bee)] Review of Systems ROS Statement: Those systems with pertinent positive or pertinent negative responses have been documented in the HPI. ROS Other: All systems not noted in ROS Statement are negative. Past Medical History Past Medical History: Diabetes Mellitus, GERD/Reflux Additional Past Medical History / Comment(s): TYPE 2 DIABETES CONTROLLED WITH DIET & EXERCISE (pt takes Lisinopril not for BP but to protect kidneys from type 2 DM). HAS HX chronic ANEMIA & LOW IRON levels (has received Iron infusions (most recent 07/04/18 and 07/10/18) History of Any Multi-Drug Resistant Organisms: None Reported Past Surgical History: Bariatric Surgery, Section, Hysterectomy, Tubal Ligation Additional Past Surgical History / Comment(s): LAP BAND IN 2007, LAB BAND REMOVED IN 2013., GASTRIC SLEEVE 2013. X 2 (AUGUST 1987 & JUNE 2004)-Tubal Ligation JUNE 2004, HYSTERECTOMY 2013, RnY (gastric bypass 2015), left oopherectomy 2015 panniculectomy 09-22-19 Past Anesthesia/Blood Transfusion Reactions: Family History of Problems w/ Anesthesia Additional Past Anesthesia/Blood Transfusion Reaction / Comment(s): MOTHER & SISTER HAD DIFFICULTY IN WAKING UP but she has not had any problems personally Past Psychological History: No Psychological Hx Reported Smoking Status: Never smoker, Unknown if ever smoked Past Alcohol Use History: None Reported Past Drug Use History: None Reported - Past Family History Father Family Medical History: Neurologic Disorder Additional Family Medical History / Comment(s): Patient states her father had "super high iron levels", Sjogrens syndrome, at age 62 from Marcie Gherig's disease Mother History Unknown: Yes Family Medical History: No Reported History General Exam Limitations: no limitations General appearance: alert, in distress Head exam: Present: atraumatic, normocephalic, normal inspection Neck exam: Present: normal inspection, other (Tenderness on palpation of the posterior cervical spine. Full range of motion.) Respiratory exam: Present: normal lung sounds bilaterally. Absent: respiratory distress, wheezes, rales, rhonchi, stridor Cardiovascular Exam: Present: regular rate, normal rhythm, normal heart sounds. Absent: systolic murmur, diastolic murmur, rubs, gallop, clicks Extremities exam: Present: other (Tenderness palpation over the left humeral head and to the posterior aspect of the left shoulder. 2+ radial pulses and capillary refill <1 second.) Neurological exam: Present: alert, oriented X3, CN II-XII intact Psychiatric exam: Present: normal affect, normal mood Skin exam: Present: warm, dry, intact, normal color. Absent: rash Course Vital Signs 12/04/22 09:09 Temperature 97.9 F Pulse Rate 79 Respiratory 18 Rate Blood Pressure 132/85 O2 Sat by Pulse 99 Oximetry Medical Decision Making - Medical Decision Making This is a 57-year-old female who presents to the emergency department for neck pain. Was pt. sent in by a medical professional or institution? @ -No Did you speak to anyone other than the patient for history? @ -No Did you review nursing and triage notes? @ -Yes, and I agree, it is accurate with regards to the patient's symptoms. Were old charts reviewed? @ -No Differential Diagnosis? @ -Differential Neck Pain: Fracture, dislocation, contusion, strain, DDD, disc herniation, this is not meant to be an all-inclusive list. EKG interpreted by me (3pts min.)? @ -EKG interpreted by me demonstrating the following: Sinus rhythm. Ventricular rate 71 bpm, CA interval 157 ms, QRS duration 90 ms, QTC 398 ms. X-rays interpreted by me (1pt min.)? @ -X-ray of the left shoulder and cervical spine obtained. My interpretation identifies no evidence of any acute fractures. CT interpreted by me (1pt min.)? @ -Not obtained U/S interpreted by me (1pt. min.)? @ -Not obtained What testing was considered but not performed? (CT, X-rays, U/S, labs)? Why? @ -None What meds were considered but not given? Why? @ -None Did you discuss the management of the patient with other professionals? @ -No Did you reconcile home meds? @ -No Was smoking cessation discussed for >3mins.? @ -No Was critical care preformed (if so, how long)? @ -No Were there social determinants of health that impacted care today? How? (Homelessness, low income, unemployed, alcoholism, drug addiction, transportation, low edu. Level, literacy, decrease access to med. care, skilled nursing, rehab)? @ -No Was there de-escalation of care discussed even if they declined? (Discuss DNR or withdrawal of care, Hospice)? @ -No What co-morbidities impacted this encounter? (DM, HTN, Smoking, COPD, CAD, Cancer, CVA, Hep., AIDS, mental health diagnosis, sleep apnea, morbid obesity)? @ -DM Was patient admitted / discharged? @ -Discharged. X-ray of the cervical spine and left shoulder obtained revealing degenerative changes with no acute process. She was given IM Toradol and a lidocaine patch with mild improvement in symptoms. I had planned on giving her Valium for muscle relaxant purposes, however she was concerned that it would be too strong for her. She was subsequently given 30 mg of Norflex. She did note fairly substantial pain relief with the Norflex. Advised that this is most likely related to a cervical strain, especially given that she has had to work more hours recently while at a desk and staring at a computer screen. Prescriptions for prednisone, Robaxin, and lidocaine patches provided with dosing instructions reviewed. Otherwise advised she follow-up with her primary care provider. Undiagnosed new problem with uncertain prognosis? @ -None Drug Therapy requiring intensive monitoring for toxicity (Heparin, Nitro, Insulin, Cardizem)? @ -None Were any procedures done? @ -None Diagnosis/symptom? @ -Cervical strain Acute, or Chronic, or Acute on Chronic? @ -Acute Uncomplicated (without systemic symptoms) or Complicated (systemic symptoms)? @ -Uncomplicated Side effects of treatment? @ -None Exacerbation, Progression, or Severe Exacerbation] @ -Not applicable Poses a threat to life or bodily function? @ -The pain is impacting her ability to function. Return precautions reviewed in depth, the patient is instructed to return to the emergency department with any new, worsening, or concerning symptoms. Patient verbalized understanding. This case was discussed in detail with the attending ED physician, Dr. López. Presentation, findings, and treatment plan discussed in detail as well. - Radiology Data Radiology results: report reviewed, image reviewed Disposition Clinical Impression: Cervical strain Disposition: HOME SELF-CARE Instructions (If sedation given, give patient instructions): Cervical Strain (ED) Additional Instructions: Return to the emergency department with any new, worsening, or concerning symptoms. Take the prednisone daily for 5 days. You can also apply the lidocaine patches daily. You can take the Robaxin as 1-2 tablets up to 4 times daily. You may want to start with half of a tablet to see how it affects you, as it may make you drowsy. You can also continue to apply warm moist heat. Follow up with your primary care provider in 1-2 days. Prescriptions: Lidocaine 5% Patch [Lidoderm 5% Patch] 1 patch TOPICAL DAILY PRN #30 patch PRN Reason: Pain predniSONE 50 mg PO DAILY 5 Days #5 tab methocarbamoL [Robaxin-750] 750 mg PO QID PRN #30 tab PRN Reason: Pain Is patient prescribed a controlled substance at d/c from ED?: No Referrals: Idris Street MD [Primary Care Provider] - 1-2 days
--- NOTE | 2022-12-04 10:23 | XR ---
EXAMINATION TYPE: XR cervical spine comp DATE OF EXAM: 12/04/2022 10:08 AM CLINICAL INDICATION:Female, 57 years old with history of Pain; [facility] COMPARISON: None TECHNIQUE: The cervical spine was imaged in frontal, lateral, odontoid and bilateral oblique. FINDINGS: The osseous structures show normal alignment without evidence of an acute fracture. There are minimal osteophytes noted throughout the cervical spine on the anterior and lateral aspects of the vertebral bodies. The intervertebral disk spaces are narrowed at multiple levels. Pedicles are intact. Soft t issues are within normal limits. The odontoid appears intact. The neural foramen appear patent. IMPRESSION: 1. No fracture or dislocation. 2. Mild degenerative disc disease changes of the cervical spine.
--- NOTE | 2022-12-04 10:24 | XR ---
EXAMINATION TYPE: XR shoulder complete LT DATE OF EXAM: 12/04/2022 10:08 AM CLINICAL INDICATION:Female, 57 years old with history of Pain; COMPARISON: None TECHNIQUE: XR shoulder complete LT; shoulder was examined in AP, internally rotated and scapular Y p rojections. FINDINGS: No evidence of acute osseous pathology, joint dislocation, or soft tissue swelling. The remaining por tions of the visualized chest are unremarkable. No significant degeneration of the shoulder. IMPRESSION: 1. No acute osseous pathology. 2. No significant degeneration changes.
[2022-12-04] MEDS ORDERED: ORPHENADRINE 30 MG/ML 2 ML VIAL IM STA (10:31)
[2022-12-04] MEDS ORDERED: ACET/COD 300 MG/30 MG STARTER PACK 6 TAB BTL PO STA (11:25)
[2022-12-04 12:05] VITALS: BP 115/79; PULSE 75; RESP 16; TEMP 98.3
== END 2022-12-04 12:49 | disposition home or self-care (01) ==
LOC: EC 08:50
DX: S16.1XXA Strain of muscle, fascia and tendon at neck level, initial encounter (principal); E11.9 Type 2 diabetes mellitus without complications; Z88.2 Allergy status to sulfonamides; Z88.1 Allergy status to other antibiotic agents; Z91.030 Bee allergy status; Z88.8 Allergy status to other drugs, medicaments and biological substances; X58.XXXA Exposure to other specified factors, initial encounter
CPT/HCPCS: 72050; 73030; 99284; 96372 ×2; J2360; J1885